=== PATIENT | female | born 1950 | race American Indian/Alaskan Native ===

== ENCOUNTER 2017-05-19 07:38 | Day surgery (SDC) | payer MEDICARE, OTHER ==
[2017-05-19] MEDS ORDERED: ECOTRIN PO NR (08:03)
[2017-05-19 08:19] LABS: Basophils # (Auto) 0.1 K/mm3 (0.0-0.1); Basophils % (Auto) 0.6 % (0.0-1.8); Eosinophils # (Auto) 0.3 K/mm3 (0.0-0.4); Eosinophils % (Auto) 2.2 % (0.0-4.3); Hematocrit 36.8 % (30.3-42.9); Hemoglobin 12.1 gm/dl (10.1-14.3); Lymphocytes # (Auto) 3.1 K/mm3 (1.2-5.4); Lymphocytes % (Auto) 27.2 % (13.4-35.0); Mean Corpuscular HGB Conc 33 % (30-34); Mean Corpuscular Hemoglobin 31 pg (28-32); Mean Corpuscular Volume 94 fl (79-97); Monocytes # (Auto) 1.4 K/mm3 (0.0-0.8); Platelet Count 206 K/mm3 (140-440); Red Blood Count 3.94 M/mm3 (3.65-5.03); Red Cell Distribution Width 13.5 % (13.2-15.2)
[2017-05-19 08:32] LABS: Calcium 8.9 mg/dL (8.4-10.2)
[2017-05-19] MEDS ORDERED: HEPARIN/NS 5000 UNIT/500ML(CATH LAB) 1,000 ML IR ONE (08:44)
[2017-05-19] MEDS ORDERED: HEPARIN 10,000 UNITS/10 ML ONE (08:44)
[2017-05-19] MEDS ORDERED: NACL 0.9% 500 ML 500 ML IV SCH (09:00)
[2017-05-19] MEDS ORDERED: D50W (25GM) Syringe IV ONE (09:04)
[2017-05-19 09:05] LABS: INR 0.89 (0.87-1.13)
[2017-05-19] MEDS: SUBLIMAZE ONE ×2 (09:36→09:44)
[2017-05-19] MEDS: VERSED ONE ×2 (09:36→09:44)
[2017-05-19] MEDS: XYLOCAINE 2% INFILTRATI ONE ×2 (09:37→09:45)
[2017-05-19] MEDS ORDERED: XYLOCAINE 2% INFILTRATI ONE (09:44)
[2017-05-19] MEDS ORDERED: NACL 0.9% 0 ML ONE (09:54)
[2017-05-19] MEDS ORDERED: ANGIOMAX IV ONE (09:54)
[2017-05-19] MEDS ORDERED: BENADRYL ONE (10:03)
[2017-05-19] MEDS ORDERED: NITROSTAT SL ONE (10:03)
[2017-05-19] MEDS: APRESOLINE ONE ×2 (10:08→10:16)
[2017-05-19] MEDS ORDERED: PEPCID IV ONE ×2 (10:10→10:16)
--- NOTE | 2017-05-19 10:44 | Cardiac Catherization Report ---
REFERRING PHYSICIAN: Nestor Armando MD INDICATION FOR PROCEDURE: The patient is a pleasant 67-year-old -[place] female with a history of coronary artery disease, status post coronary bypass surgery and bioprosthetic mitral valve placement, presents with chest pain, typical and atypical features. She also has an abnormal nuclear stress test with anterior and inferior ischemia. Referred for left heart catheterization. Risks, benefits, alternatives explained at length prior to informed consent. PROCEDURE IN DETAIL: The patient was brought to drop crew laborer in postoperative state, prepped and draped in a sterile fashion, 8 mL of 2% lidocaine used to anesthetize the right groin. Standard 5-Czech sheath used to cannulate the right common femoral artery via modified Seldinger technique. All exchanges performed to exchange a J-tip guidewire. JL3.5 catheter used to engage the left main. No dampening or ventricularization. Cineangiography performed in all projections. JR4 catheter was used to cross the aortic valve under fluoroscopic guidance. Left ventriculography performed in 30 HOPPER and 30 [place] projections via hand injections, catheter flushed. Manual pullback performed with continuous pressure monitoring. Catheter used to engage the right coronary. No dampening or ventricularization. Cineangiography performed in all projections. Next, catheter used to engage SVG to lateral wall, unable to engage any other SVGs off the aorta. We used the catheter to engage the left subclavian carefully advanced over a wire. WILCOX angiography performed. Next, catheter removed from the left subclavian over a wire carefully. Next, root aortography was performed in the SETS[place] projection with power injector. Next, catheter removed from the body of wire, sheath removed. Manual pressure used to achieve hemostasis. DATA: Aortic pressure is 130/60, LV pressure is 130, LVEP of 20 mmHg. Left ventriculography revealed normal systolic performance with estimated ejection fraction of 55-60%. No evidence of aortic stenosis. CORONARY ANATOMY: This is a right dominant system, right coronary is occluded proximally chronic total occlusion, extensive left to right collaterals identified. Left main is a moderate sized vessel, 50% distal left main stenosis identified. Left circumflex is a moderate size vessel, diffuse small vessel disease throughout with 80-90% mid segment stenosis. LAD is a moderate sized vessel, courses anterior intergroove rise occluded in the mid segment. WILCOX to LAD is widely patent. 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 Root aortography does not reveal any patent aorta or coronary conduits. No evidence of dissection or penetrating aortic ulcer or aortic insufficiency. I directly supervised the administration of moderate sedation with fentanyl and Versed. Sedation time started at 9:41, ended at 10:15. The patient's blood pressure spiked towards the end of the procedure, the patient was given 20 of IV hydralazine. This improved. No significant chest pain. The patient is asymptomatic at the end of the procedure. CONCLUSIONS: 1. Severe [place] coronary artery disease with 100% chronic total occlusion of the mid LAD, 100% chronic total occlusion of the proximal right coronary, diffuse small vessel disease 80-90% of the mid left circumflex, not amenable to PCI, extensive left to right collaterals. 2. Patent WILCOX to LAD. 3. 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 Normal left ventricular systolic performance, estimated ejection fraction of 55-60%. 4. No evidence of aortic stenosis. 5. Root aortography without evidence of dissection or penetrating aortic ulcer. At this point, the patient is clinically stable, chest pain free. Recommend intensifying medical therapy. chronic total occlusion at a later time. Results of procedure explained to the patient and family. All questions and concerns were addressed. She will be discharged in stable condition once right groin is stable. JOB# [id number] CARMENCITA/BLADE
[2017-05-19] MEDS ORDERED: PERCOCET 5/325 ONE (11:24)
[2017-05-19] MEDS ORDERED: PERCOCET 5/325 PO ONE (11:27)
[2017-05-19 16:05] VITALS: BP 114/50
--- NOTE | 2017-05-20 09:52 | Short Stay Summary ---
Short Stay Documentation Date of service: 05/19/17 - History H&P: obtained from office - Allergies and Medications Current Medications: Allergies No Known Allergies Allergy (Unverified 05/19/17 07:38) Home Medications Medication Instructions Recorded Confirmed Last Taken Type ALBUTEROL NEB's [Proventil] 2.5 mg IH TID PRN 05/19/17 05/19/17 1 Week Ago History ~05/12/17 Aspirin [Aspirin EC] 81 mg PO DAILY 05/19/17 05/19/17 05/18/17 History Carvedilol [Coreg] 12.5 mg PO BID 05/19/17 05/19/17 05/18/17 History Duloxetine HCl [DULoxetine] 60 mg PO DAILY 05/19/17 05/19/17 05/18/17 History Fluticasone Propionate [Flovent 2 puff INHALATION BID 05/19/17 05/19/17 History 110 MCG/PUFF HFA] Fluticasone [Flonase] 1 inh INNOSTRIL DAILY 05/19/17 05/19/17 1 Week Ago History ~05/12/17 Furosemide [Lasix TAB] 40 mg PO DAILY 05/19/17 05/19/17 05/18/17 History ISOSORBIDE MONOnitrate [Imdur ER] 60 mg PO QDAY 05/19/17 05/19/17 05/18/17 History Insulin Glargine,Hum.rec.anlog 10 unit PO DAILY 05/19/17 05/19/17 05/18/17 History [Lantus Solostar] Loratadine 10 mg PO DAILY 05/19/17 05/19/17 05/17/17 History Meloxicam 15 mg PO DAILY 05/19/17 05/19/17 05/18/17 History Metformin HCl 500 mg PO BID 05/19/17 05/19/17 1 Week Ago History ~05/12/17 Montelukast [Singulair] 10 mg PO QPM 05/19/17 05/19/17 05/18/17 History Nitroglycerin 0.4 mg SL Q5MIN PRN 05/19/17 05/19/17 05/14/17 History Omeprazole 20 mg PO DAILY 05/19/17 05/19/17 05/18/17 History Ramipril 5 mg PO DAILY 05/19/17 05/19/17 05/18/17 History Ranolazine [Ranexa] 500 mg PO BID #60 tab.er.12h 05/19/17 Unknown Rx Saxagliptin HCl [Onglyza] 5 mg PO DAILY 05/19/17 05/19/17 05/18/17 History Tiotropium [place] [Spiriva] 18 mcg IH DAILY 05/19/17 05/19/17 05/16/17 History Zolpidem [Ambien] 10 mg PO QHS 05/19/17 05/19/17 4 Months Ago History ~01/18/17 busPIRone [Buspar] 5 mg PO DAILY 05/19/17 05/19/17 05/18/17 History oxyCODONE /ACETAMINOPHEN [Percocet 1 tab PO Q6HR PRN 05/19/17 05/19/17 05/19/17 History 5/325 mg] - Brief post op/procedure progress note Date of procedure: 05/19/17 Pre-op diagnosis: CAD; abnormal stress test Post-op diagnosis: same Procedure: C - see cath report Anesthesia: local Estimated blood loss: none Condition: stable - Disposition Condition at discharge: Stable Disposition: [id number] TO HOME OR SELFCARE - Discharge Diagnoses (1) CAD (coronary artery disease) Status: Chronic (2) Hx of CABG Status: Chronic (3) History of mitral valve replacement with bioprosthetic valve Status: Chronic Short Stay Discharge Plan Activity: advance as tolerated Diet: low fat, low cholesterol, low salt Wound: open to air, keep clean and dry, per your surgeon's advice Follow up with: CLEO FUNK NP-C [Primary Care Provider] - 7 Days Prescriptions: Ranolazine [Ranexa] 500 mg PO BID #60 tab.er.12h
== END 2017-05-19 15:15 | disposition home or self-care (01) ==
LOC: CATHLABREC 07:38
PROVIDERS: ATTEND Internal Medicine
DX: I25.10 Atherosclerotic heart disease of native coronary artery without angina pectoris (principal); I11.0 Hypertensive heart disease with heart failure; I50.9 Heart failure, unspecified; J44.9 Chronic obstructive pulmonary disease, unspecified; E11.9 Type 2 diabetes mellitus without complications; E78.5 Hyperlipidemia, unspecified; E66.01 Morbid (severe) obesity due to excess calories; Z95.2 Presence of prosthetic heart valve; Z79.01 Long term (current) use of anticoagulants
CPT/HCPCS: 36415; 80048; 82962; 85025; 85610; 85730; 93005; 93010; 93459; 93567; 99156; 99157; J0360; J1200; J1644; J2250; J2930; J3010; J7040; J0583; Q9967

== ENCOUNTER 2018-09-22 17:34 | Inpatient (IN) | payer MEDICARE ==
[2018-09-22] MEDS ORDERED: CARDIZEM IV ONE (18:00)
--- NOTE | 2018-09-22 18:05 | Emergency Department Report ---
ED Palpitations HPI - General Chief Complaint: Arrhythmia/Palpitations Stated Complaint: CHEST PAIN Time Seen by Provider: 09/22/18 17:52 Source: patient Mode of arrival: Wheelchair Limitations: No Limitations - History of Present Illness Initial Comments: 68 yo F with hx of CABG, coronary stents, mitral valve replacement, CHF presents to ED in Afib with RVR. Pt sent from her psychiatric np's office. Pt states she had a regularly scheduled appointment today. Reports palpitations today, which is new. Also reports intermittent chest pain and SOB over the last 2 weeks. Pt does not believe she has been previously diagnosed with Afib or an irregular heartbeat. Denies taking any blood thinners. Cards: Prabha COREA Complaint: atrial fibrillation -: days(s) (1) Context: occured during rest Associated Symptoms: chest pain, shortness of breath. denies: nausea/vomiting - Related Data Home Medications Medication Instructions Recorded Confirmed Last Taken ALBUTEROL NEB's [Proventil] 2.5 mg IH TID PRN 05/19/17 09/22/18 1 Week Ago ~05/12/17 Aspirin [Aspirin EC] 81 mg PO DAILY 05/19/17 09/22/18 05/18/17 Carvedilol [Coreg] 12.5 mg PO BID 05/19/17 09/22/18 05/18/17 Duloxetine HCl [DULoxetine] 60 mg PO DAILY 05/19/17 09/22/18 05/18/17 Fluticasone Propionate [Flovent 2 puff INHALATION BID 05/19/17 09/22/18 05/17/17 110 MCG/PUFF HFA] Fluticasone [Flonase] 1 inh INNOSTRIL DAILY 05/19/17 09/22/18 1 Week Ago ~05/12/17 Furosemide [Lasix TAB] 40 mg PO DAILY 05/19/17 09/22/18 05/18/17 ISOSORBIDE MONOnitrate [Imdur ER] 60 mg PO QDAY 05/19/17 09/22/18 05/18/17 Insulin Glargine,Hum.rec.anlog 10 unit PO DAILY 05/19/17 09/22/18 05/18/17 [Lantus Solostar] Loratadine 10 mg PO DAILY 05/19/17 09/22/18 05/17/17 Meloxicam 15 mg PO DAILY 05/19/17 09/22/18 05/18/17 Metformin HCl 500 mg PO BID 05/19/17 09/22/18 1 Week Ago ~05/12/17 Montelukast [Singulair] 10 mg PO QPM 05/19/17 09/22/18 05/18/17 Nitroglycerin 0.4 mg SL Q5MIN PRN 05/19/17 09/22/18 05/14/17 Omeprazole 20 mg PO DAILY 05/19/17 09/22/18 05/18/17 Ramipril 5 mg PO DAILY 05/19/17 09/22/18 05/18/17 Saxagliptin HCl [Onglyza] 5 mg PO DAILY 05/19/17 09/22/18 05/18/17 Tiotropium [place] [Spiriva] 18 mcg IH DAILY 05/19/17 09/22/18 05/16/17 Zolpidem [Ambien] 10 mg PO QHS 05/19/17 09/22/18 4 Months Ago ~01/18/17 busPIRone [Buspar] 5 mg PO DAILY 05/19/17 09/22/18 05/18/17 oxyCODONE /ACETAMINOPHEN [Percocet 1 tab PO Q6HR PRN 05/19/17 09/22/18 05/19/17 5/325 mg] Previous Rx's Medication Instructions Recorded Last Taken Type Ranolazine [Ranexa] 500 mg PO BID #60 tab.er.12h 05/19/17 Unknown Rx Allergies Allergy/AdvReac Type Severity Reaction Status Date / Time No Known Allergies Allergy Unverified 05/19/17 07:38 ED Review of Systems ROS: Stated complaint: CHEST PAIN Other details as noted in HPI Comment: All other systems reviewed and negative Constitutional: denies: chills, fever Respiratory: shortness of breath Cardiovascular: chest pain, palpitations Gastrointestinal: denies: nausea, vomiting ED Past Medical Hx - Past Medical History Previous Medical History?: Yes Hx Hypertension: Yes Hx Heart Attack/AMI: Yes Hx Congestive Heart Failure: Yes Hx Diabetes: Yes (IDDM) Hx GERD: Yes Hx Arthritis: Yes (knee) Hx COPD: Yes - Surgical History Past Surgical History?: Yes Hx Open Heart Surgery: Yes - Social History Smoking Status: Current Every Day Smoker Substance Use Type: None - Medications Home Medications: Home Medications Medication Instructions Recorded Confirmed Last Taken Type ALBUTEROL NEB's [Proventil] 2.5 mg IH TID PRN 05/19/17 09/22/18 1 Week Ago History ~05/12/17 Aspirin [Aspirin EC] 81 mg PO DAILY 05/19/17 09/22/18 05/18/17 History Carvedilol [Coreg] 12.5 mg PO BID 05/19/17 09/22/18 05/18/17 History Duloxetine HCl [DULoxetine] 60 mg PO DAILY 05/19/17 09/22/18 05/18/17 History Fluticasone Propionate [Flovent 2 puff INHALATION BID 05/19/17 09/22/18 05/17/17 History 110 MCG/PUFF HFA] Fluticasone [Flonase] 1 inh INNOSTRIL DAILY 05/19/17 09/22/18 1 Week Ago History ~05/12/17 Furosemide [Lasix TAB] 40 mg PO DAILY 05/19/17 09/22/18 05/18/17 History ISOSORBIDE MONOnitrate [Imdur ER] 60 mg PO QDAY 05/19/17 09/22/18 05/18/17 History Insulin Glargine,Hum.rec.anlog 10 unit PO DAILY 05/19/17 09/22/18 05/18/17 History [Lantus Solostar] Loratadine 10 mg PO DAILY 05/19/17 09/22/18 05/17/17 History Meloxicam 15 mg PO DAILY 05/19/17 09/22/18 05/18/17 History Metformin HCl 500 mg PO BID 05/19/17 09/22/18 1 Week Ago History ~05/12/17 Montelukast [Singulair] 10 mg PO QPM 05/19/17 09/22/18 05/18/17 History Nitroglycerin 0.4 mg SL Q5MIN PRN 05/19/17 09/22/18 05/14/17 History Omeprazole 20 mg PO DAILY 05/19/17 09/22/18 05/18/17 History Ramipril 5 mg PO DAILY 05/19/17 09/22/18 05/18/17 History Ranolazine [Ranexa] 500 mg PO BID #60 tab.er.12h 05/19/17 09/22/18 Unknown Rx Saxagliptin HCl [Onglyza] 5 mg PO DAILY 05/19/17 09/22/18 05/18/17 History Tiotropium [place] [Spiriva] 18 mcg IH DAILY 05/19/17 09/22/18 05/16/17 History Zolpidem [Ambien] 10 mg PO QHS 05/19/17 09/22/18 4 Months Ago History ~01/18/17 busPIRone [Buspar] 5 mg PO DAILY 05/19/17 09/22/18 05/18/17 History oxyCODONE /ACETAMINOPHEN [Percocet 1 tab PO Q6HR PRN 05/19/17 09/22/18 05/19/17 History 5/325 mg] ED Physical Exam - General Limitations: No Limitations General appearance: alert - Head Head exam: Present: atraumatic, normocephalic - Eye Eye exam: Present: normal appearance, PERRL, EOMI - ENT ENT exam: Present: mucous membranes moist - Neck Neck exam: Present: normal inspection - Respiratory Respiratory exam: Present: normal lung sounds bilaterally. Absent: respiratory distress - Cardiovascular Cardiovascular Exam: Present: tachycardia, irregular rhythm - GI/Abdominal GI/Abdominal exam: Present: soft. Absent: distended, tenderness - Extremities Exam Extremities exam: Present: normal inspection. Absent: pedal edema - Neurological Exam Neurological exam: Present: alert, oriented X3 - Psychiatric Psychiatric exam: Present: normal affect, normal mood - Skin Skin exam: Present: warm, dry, intact, normal color ED Course Vital Signs 09/22/18 09/22/18 09/22/18 17:46 18:04 18:15 Pulse Rate 123 H 106 H Respiratory 20 15 13 Rate Blood Pressure 155/81 Blood Pressure 166/93 [Right] O2 Sat by Pulse 96 95 Oximetry 09/22/18 09/22/18 09/22/18 18:30 18:40 18:45 Pulse Rate 102 H 102 H 89 Respiratory 12 15 Rate Blood Pressure 162/84 162/82 128/65 Blood Pressure [Right] O2 Sat by Pulse 96 100 Oximetry 09/22/18 09/22/18 09/22/18 19:01 19:15 19:31 Pulse Rate 89 89 90 Respiratory 12 19 12 Rate Blood Pressure 170/146 170/146 179/68 Blood Pressure [Right] O2 Sat by Pulse 100 99 100 Oximetry 09/22/18 09/22/18 09/22/18 19:45 20:01 20:15 Pulse Rate 88 88 89 Respiratory 12 15 14 Rate Blood Pressure 179/68 169/71 155/66 Blood Pressure [Right] O2 Sat by Pulse 100 100 100 Oximetry 09/22/18 09/22/18 09/22/18 20:31 20:45 21:00 Pulse Rate 95 H 94 H 88 Respiratory 15 20 11 L Rate Blood Pressure 154/68 150/60 152/80 Blood Pressure [Right] O2 Sat by Pulse 100 100 100 Oximetry 09/22/18 09/22/18 09/22/18 21:15 21:31 21:45 Pulse Rate 89 85 108 H Respiratory 18 16 17 Rate Blood Pressure 150/60 165/80 158/83 Blood Pressure [Right] O2 Sat by Pulse 100 100 100 Oximetry 09/22/18 09/22/18 09/22/18 22:01 22:15 22:31 Pulse Rate 96 H 100 H 101 H Respiratory 15 15 14 Rate Blood Pressure 169/77 155/80 130/67 Blood Pressure [Right] O2 Sat by Pulse 100 100 100 Oximetry 09/22/18 09/22/18 23:01 23:31 Pulse Rate 107 H 102 H Respiratory 16 16 Rate Blood Pressure 146/57 133/74 Blood Pressure [Right] O2 Sat by Pulse 100 100 Oximetry - Consultations Consultation #1: 09/22/18 21:40 Spoke w/ Dr Barajas Julio Cesartanner pt started on Amiodarone 400 mg BID. ED Medical Decision Making - Lab Data Result diagrams: 09/22/18 18:18 09/22/18 18:18 - EKG Data -: EKG Interpreted by Ga EKG shows normal: QRS complexes, ST-T waves Rate: tachycardia - EKG Data Interpretation: other (atrial fibrillation) - Radiology Data Radiology results: report reviewed, image reviewed - Medical Decision Making 68 yo F presents to ED in Afib w/ RVR, new onset Afib. Trop negative. CXR shows cardiomegaly, possible mild pulm edema. O2 sats normal. Pt in no resp distress. Rate controlled with one dose of Cardizem 20 mg. Pt given PO Amio darone per her psychiatric np, Dr Armando. Will admit to hospitalist, Dr Otero, for further evaluation. - Differential Diagnosis ACS, new onset Afib, pulm edema Critical Care Time: Yes Critical care time in (mins) excluding proc time.: 35 Critical care attestation.: If time is entered above; I have spent that time in minutes in the direct care of this critically ill patient, excluding procedure time. Critical Care Time: 35 minutes ED Disposition Clinical Impression: New onset atrial fibrillation, Atrial fibrillation with RVR Disposition: OP ADMIT IP TO THIS HOSP Is pt being admited?: Yes Condition: Stable Referrals: TESSA WEEKS MD [Primary Care Provider] - 3-5 Days Time of Disposition: 19:06
[2018-09-22 18:35] LABS: Basophils # (Auto) 0.1 K/mm3 (0.0-0.1); Basophils % (Auto) 0.9 % (0.0-1.8); Eosinophils # (Auto) 0.2 K/mm3 (0.0-0.4); Eosinophils % (Auto) 1.7 % (0.0-4.3); Hematocrit 37.6 % (30.3-42.9); Hemoglobin 12.5 gm/dl (10.1-14.3); Lymphocytes # (Auto) 1.8 K/mm3 (1.2-5.4); Lymphocytes % (Auto) 18.9 % (13.4-35.0); Mean Corpuscular HGB Conc 33 % (30-34); Mean Corpuscular Volume 95 fl (79-97); Monocytes # (Auto) 1.2 K/mm3 (0.0-0.8); Platelet Count 188 K/mm3 (140-440); Red Blood Count 3.95 M/mm3 (3.65-5.03)
[2018-09-22 18:44] LABS: INR 1.18 (0.87-1.13)
[2018-09-22 18:45] LABS: Partial Thromboplastin Time 32.7 Sec. (24.2-36.6)
[2018-09-22 18:51] LABS: BUN/Creatinine Ratio 12; Blood Urea Nitrogen 12 mg/dL (7-17); Calcium 8.6 mg/dL (8.4-10.2); Hemolysis Index 2
[2018-09-22] MEDS ORDERED: MORPHINE ONE (18:53)
[2018-09-22] MEDS ORDERED: ZOFRAN ONE (18:54)
[2018-09-22] MEDS ORDERED: ZOFRAN IV ONE (18:58)
[2018-09-22] MEDS ORDERED: MORPHINE IV ONE (18:58)
[2018-09-22] MEDS ORDERED: ASPIRIN PO ONE (19:05)
--- NOTE | 2018-09-22 20:45 | XRay Report ---
CHEST 1 VIEW INDICATION / CLINICAL INFORMATION: chest pain. COMPARISON: None available. FINDINGS: SUPPORT DEVICES: None. HEART / MEDIASTINUM: Post surgical changes of CABG and aortic valve replacement are present. The hear t is mildly enlarged. LUNGS / PLEURA: No definite pleural fluid. No pneumothorax. Pulmonary vascular and interstitial iman ngs are mildly prominent. The right hemidiaphragm is elevated. ADDITIONAL FINDINGS: Advanced osteoarthrosis of the shoulders. No acute bony abnormality. IMPRESSION: 1. Mild cardiomegaly. 2. No pulmonary consolidation. Interstitial and vascular prominence is suggestive of mild pulmonary e he. Signer Name: Cosme Castillo MD Signed: 09/22/2018 8:41 PM Workstation Name: [id number]
[2018-09-22] MEDS ORDERED: CORDARONE PO SCH (22:00)
[2018-09-23] MEDS ORDERED: HEPARIN 10,000 UNITS/10 ML IV NR (01:15)
[2018-09-23] MEDS ORDERED: NITROSTAT SL PRN (01:19)
[2018-09-23] MEDS ORDERED: TYLENOL PO PRN (01:20)
[2018-09-23] MEDS ORDERED: ZOFRAN IV PRN (01:21)
[2018-09-23 01:48] LABS: Hematocrit 37.4 % (30.3-42.9); Hemoglobin 12.4 gm/dl (10.1-14.3)
[2018-09-23] MEDS ORDERED: HEPARIN/ 0.45% NACL-25,000 UNIT/500 ML 25,000 UNIT/500 ML BAG IV SCH (02:00)
[2018-09-23 02:14] LABS: INR 1.1 (0.87-1.13)
[2018-09-23 02:15] LABS: Partial Thromboplastin Time 32.9 Sec. (24.2-36.6)
[2018-09-23] MEDS: MORPHINE IV PRN ×3 (02:15→21:36)
[2018-09-23] MEDS ORDERED: NITRO-BID 2% TP SCH (06:00)
[2018-09-23 07:50] LABS: Creatine Kinase MB 1.9 ng/mL (0.0-4.0)
--- NOTE | 2018-09-23 08:32 | History and Physical Report ---
CHIEF COMPLAINT: Palpitation. Other complaint includes chest pain. HISTORY OF PRESENT ILLNESS: The patient is a 68-year-old female who said she has been having intermittent chest pain with shortness of breath going on for 2 weeks and then developed palpitations yesterday 09/22/2018 and the patient had a scheduled appointment with the appraiser timber Dr. Armando and went to the appraiser timber's office from where she was sent to come to the Emergency Room because of irregular heartbeat. There is no history of nausea or vomiting. No history of diaphoresis, fever, cough and the patient presented for evaluation. PAST MEDICAL HISTORY: Pertinent for hypertension, coronary artery disease, status post myocardial infarction, congestive heart failure, diabetes mellitus, gastroesophageal reflux disease, arthritis, COPD. PAST SURGICAL HISTORY: Pertinent for open heart surgery. FAMILY HISTORY: Reviewed and noncontributory. SOCIAL HISTORY: The patient smokes cigarettes daily, does not drink alcohol and does not use illicit drugs. MEDICATIONS: The patient is on albuterol inhaler 2.5 mg t.i.d. as needed for shortness of breath, enteric-coated aspirin 81 mg daily, Coreg 12.5 mg by mouth twice daily, duloxetine 60 mg by mouth daily and Flovent 2 puffs by inhalation b.i.d., fluticasone 1 inch in the nostril daily, furosemide 40 mg by mouth daily, isosorbide mononitrate 60 mg by mouth daily, Lantus insulin 10 units by mouth daily, loratadine 10 mg by mouth daily, meloxicam 15 mg by mouth daily, metformin 500 mg by mouth twice daily, Singulair 10 mg by mouth every night and Nitrostat 0.4 mg sublingual every 5 minutes as needed for chest pain, omeprazole 20 mg by mouth daily and ramipril 5 mg by mouth daily, Ranexa 500 mg by mouth twice daily, saxagliptin or Onglyza 5 mg by mouth daily. The patient is also on Spiriva 18 mcg inhalation daily and zolpidem 10 mg by mouth at bedtime as well as buspirone 5 mg by mouth daily. The patient is also on Percocet 5/325 mg 1 by mouth every 6 hours as needed for pain. ALLERGIES: There are no known drug allergies. REVIEW OF SYSTEMS: CONSTITUTIONAL: There is no fever, no chills, no diaphoresis. HEENT: There is no headache or sore throat. CARDIOVASCULAR SYSTEM: There is chest pain, but no orthopnea. There is palpitation. RESPIRATORY SYSTEM: There is shortness of breath and no cough. GASTROINTESTINAL SYSTEM: There is no nausea, no vomiting, no abdominal pain, diarrhea or constipation. NEUROLOGICAL SYSTEM: There is no numbness, no dizziness, no altered mental status. MUSCULOSKELETAL SYSTEM: There is no joint pain or swelling. DERMATOLOGICAL SYSTEM: There is no skin rash or itching. GENITOURINARY SYSTEM: There is no dysuria, hematuria, or flank pain. Rest of system review is normal. PHYSICAL EXAMINATION: GENERAL: At the time of exam, the patient was found to be alert, oriented x 3 and in mild distress due to chest pain. VITAL SIGNS: At the initial time of presentation show pulse of 123, respirations of 20, blood pressure of 166/93, O2 sat of 96% on room air. The blood pressure later came down to 113/60 with nitroglycerin and other treatments. HEENT: Showed pupils to be equal, round, reactive to light and accommodating. Extraocular muscles are intact. NECK: Supple with no JVD or carotid bruit. CARDIOVASCULAR SYSTEM: Showed first and second heart sounds with irregularly irregular rhythm and no murmurs. RESPIRATORY SYSTEM: Showed good air entry on both sides of the lungs with no abnormal breath sounds. GASTROINTESTINAL SYSTEM: Show abdomen to be full, soft, nontender with no organomegaly or rigidity. NEUROLOGICAL: Shows no focal deficit. MUSCULOSKELETAL SYSTEM: Show no joint swelling or tenderness. DERMATOLOGICAL SYSTEM: Show no skin rash. GENITOURINARY SYSTEM: Showing no costovertebral angle tenderness. PERTINENT LABORATORY DATA AND IMAGING STUDIES: The patient had chest x-ray done that shows mild cardiomegaly and interstitial and vascular prominence suggestive of mild pulmonary edema. There is no finding of any pulmonary consolidation. LABORATORY AND IMAGING STUDIES: The patient had CBC done with normal white count, normal hemoglobin and normal hematocrit and CBC differential showed high monocyte count of 12%. The patient's coagulation studies were unremarkable. Chemistry was normal except for elevated brain natriuretic peptide [place] 2558. DIAGNOSES: 1. New onset atrial fibrillation with rapid ventricular rate. 2. Chest pain. PLAN OF CARE: 1. The patient will be admitted to telemetry. 2. The patient will have serial cardiac enzymes done q. 6 hours and involve troponin and total CPK with CK-MB for 2 levels. 3. The patient will continue Cardiology consult with Dr. Armando as was requested by the Emergency Room physician. 4. The patient will be on nitro paste half inch to anterior chest wall q.i.d. and will be on Nitrostat 0.24 mg every 5 minutes as needed for breakthrough chest pain. 5. The patient will be on I.V heparin protocol for atrial fibrillation and will have IV heparin bolus and low-dose heparin drip. 6. The patient will be on IV morphine 2 mg every 3 hours as needed for chest pain and will be on IV Zofran 4 mg every 8 hours for nausea and vomiting. 7. The patient will continue amiodarone tablet 400 mg by mouth twice daily as requested by the Emergency Room physician. 8. The patient will be on aspirin 325 mg by mouth daily and Tylenol 650 mg by mouth every 4 hours as needed for fever and headache. 9. The patient will be on oxygen by nasal cannula 2 liters per minute. JOB# [id number] [facility]/BLADE [email or web address]
--- NOTE | 2018-09-23 09:26 | Consultation ---
History of Present Illness Consult date: 09/23/18 Requesting physician: HUMERA NATHAN Consult reason: atrial fibrillation, chest pain History of present illness: 68-year-old female with known history of coronary arterial disease with four- vessel bypass in 1997 last year his cardiac cath revealed occluded bypass grafts with a patent WILCOX to LAD and left main distal 50% circumflex small caliber 80- 90% distally and RCA 100% with extensive [id number] collaterals but normal LV function. 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 Patient has valvular heart disease with a bioprosthetic mitral valve placed in 2009 that was functioning on echo done last year in office. Patient has diabetes smoker hypertension hyperlipidemia. Who saw cardiology as an office with palpitations and some chest pain and patient was found to have A. fib patient was admitted to the hospital. Patient has chest pain that's nonradiating left-sided not reproducible. No nausea no vomiting. Patient has been coughing some mild sputum production. Has mild shortness of breath. Denies any fever or chills. Past History Past Medical History: CAD, diabetes, hypertension, hyperlipidemia Past Surgical History: CABG, total knee replacement, Other (bioprosthetic mitral valve replacement in 2009) Social history: denies: smoking, alcohol abuse, prescription drug abuse Family history: denies: no significant family history Medications and Allergies Allergies Allergy/AdvReac Type Severity Reaction Status Date / Time No Known Allergies Allergy Unverified 05/19/17 07:38 Home Medications Medication Instructions Recorded Confirmed Last Taken Type ALBUTEROL NEB's [Proventil] 2.5 mg IH TID PRN 05/19/17 09/22/18 1 Week Ago History ~05/12/17 Aspirin [Aspirin EC] 81 mg PO DAILY 05/19/17 09/22/18 05/18/17 History Carvedilol [Coreg] 12.5 mg PO BID 05/19/17 09/22/18 05/18/17 History Duloxetine HCl [DULoxetine] 60 mg PO DAILY 05/19/17 09/22/18 05/18/17 History Fluticasone Propionate [Flovent 2 puff INHALATION BID 05/19/17 09/22/18 05/17/17 History 110 MCG/PUFF HFA] Fluticasone [Flonase] 1 inh INNOSTRIL DAILY 05/19/17 09/22/18 1 Week Ago History ~05/12/17 Furosemide [Lasix TAB] 40 mg PO DAILY 05/19/17 09/22/18 05/18/17 History ISOSORBIDE MONOnitrate [Imdur ER] 60 mg PO QDAY 05/19/17 09/22/18 05/18/17 History Insulin Glargine,Hum.rec.anlog 10 unit PO DAILY 05/19/17 09/22/18 05/18/17 History [Lantus Solostar] Loratadine 10 mg PO DAILY 05/19/17 09/22/18 05/17/17 History Meloxicam 15 mg PO DAILY 05/19/17 09/22/18 05/18/17 History Metformin HCl 500 mg PO BID 05/19/17 09/22/18 1 Week Ago History ~05/12/17 Montelukast [Singulair] 10 mg PO QPM 05/19/17 09/22/18 05/18/17 History Nitroglycerin 0.4 mg SL Q5MIN PRN 05/19/17 09/22/18 05/14/17 History Omeprazole 20 mg PO DAILY 05/19/17 09/22/18 05/18/17 History Ramipril 5 mg PO DAILY 05/19/17 09/22/18 05/18/17 History Ranolazine [Ranexa] 500 mg PO BID #60 tab.er.12h 05/19/17 09/22/18 Unknown Rx Saxagliptin HCl [Onglyza] 5 mg PO DAILY 05/19/17 09/22/18 05/18/17 History Tiotropium [place] [Spiriva] 18 mcg IH DAILY 05/19/17 09/22/18 05/16/17 History Zolpidem [Ambien] 10 mg PO QHS 05/19/17 09/22/18 4 Months Ago History ~01/18/17 busPIRone [Buspar] 5 mg PO DAILY 05/19/17 09/22/18 05/18/17 History oxyCODONE /ACETAMINOPHEN [Percocet 1 tab PO Q6HR PRN 05/19/17 09/22/18 05/19/17 History 5/325 mg] Active Meds: Active Medications Acetaminophen (Tylenol) 650 mg PO Q4H PRN PRN Reason: Headache Amiodarone HCl (Cordarone) 400 mg PO BID [facility] Last Admin: 09/22/18 23:00 Dose: 400 mg Documented by: Aspirin (Aspirin) 325 mg PO QDAY [facility] Buspirone HCl (Buspar) 5 mg PO DAILY [facility] Heparin Sodium/Sodium Chloride (Heparin/ 0.45% Nacl-25,000 Unit/500 Ml) 25,000 unit in 500 mls @ 27 mls/hr IV TITR [facility]; Protocol Last Admin: 09/23/18 03:27 Dose: 1,350 units/hr, 27 mls/hr Documented by: Isosorbide Mononitrate (Imdur) 60 mg PO QDAY [facility] Morphine Sulfate (Morphine) 2 mg IV Q3H PRN PRN Reason: Pain, Moderate (4-6) Last Admin: 09/23/18 08:02 Dose: 2 mg Documented by: Nitroglycerin (Nitro-Bid 2%) 0.5 inch TP QIDNTG [facility]; Protocol Last Admin: 09/23/18 06:30 Dose: Not Given Documented by: Nitroglycerin (Nitrostat) 0.4 mg SL .Q5MIN PRN PRN Reason: Chest Pain Last Admin: 09/23/18 03:51 Dose: 0.4 mg Documented by: Ondansetron HCl (Zofran) 4 mg IV Q8H PRN PRN Reason: Nausea And Vomiting Ranolazine (Ranexa Er) 500 mg PO BID [facility] Review of Systems All systems: negative (as per the HPI) Physical Examination Vital Signs Pulse Resp BP Pulse Ox 123 H 20 166/93 96 09/22/18 17:46 09/22/18 17:46 09/22/18 17:46 09/22/18 17:46 General appearance: no acute distress HEENT: Positive: PERRL, EOMI Neck: Positive: neck supple Cardiac: Positive: Irregularly Regular, Audible Murmur Lungs: Positive: Rhonchi Neuro: Positive: Grossly Intact Abdomen: Positive: Soft Female genitourinary: deferred Musculoskeletal: Erythematous Joints Extremities: Present: normal Results 09/23/18 01:34 09/22/18 18:18 Cardiac Enzymes 09/23/18 Range/Units 06:57 CK-MB (CK-2) 1.9 (0.0-4.0) ng/mL Coagulation 09/22/18 09/23/18 Range/Units 18:18 01:34 PT 14.7 13.9 (12.2-14.9) Sec. INR 1.18 H 1.10 (0.87-1.13) APTT 32.7 32.9 (24.2-36.6) Sec. CBC 09/22/18 09/23/18 Range/Units 18:18 01:34 WBC 9.7 (4.5-11.0) K/mm3 RBC 3.95 (3.65-5.03) M/mm3 Hgb 12.5 12.4 (10.1-14.3) gm/dl Hct 37.6 37.4 (30.3-42.9) % Plt Count 188 193 (140-440) K/mm3 Lymph # 1.8 (1.2-5.4) K/mm3 [place] # 1.2 H (0.0-0.8) K/mm3 Eos # 0.2 (0.0-0.4) K/mm3 Baso # 0.1 (0.0-0.1) K/mm3 Comprehensive Metabolic Panel 09/22/18 Range/Units 18:18 Sodium 138 (137-145) mmol/L Potassium 4.4 (3.6-5.0) mmol/L Chloride 103.6 (98-107) mmol/L Carbon Dioxide 25 (22-30) mmol/L BUN 12 (7-17) mg/dL Creatinine 1.0 (0.7-1.2) mg/dL Glucose 116 H (65-100) mg/dL Calcium 8.6 (8.4-10.2) mg/dL - Imaging and Cardiology Echo: report reviewed (04/2017 normal LV function functioning bioprosthetic mitral valve) Cardiac cath: report reviewed (05/2017 revealed occluded bypass grafts with a p atent WILCOX to LAD and left main distal 50% circumflex small caliber 80-90% distally and RCA 100% with extensive [id number] collaterals but normal LV function) EKG interpretations - Telemetry EKG Rhythm: Atrial Fibrillation Assessment and Plan New onset atrial fibrillation Acute DHF Acute COPD exacerbation Chest pain Coronary arterial disease status post bypass Bioprosthetic mitral valve Hypertension Diabetes Hyperlipidemia Smoker Recommend changing to oral anticoagulation given patient's chads score of 3, elquis , restart patient's home anti-angina medication of Ranexa imdur and restart lisinopril and will start Lopressor for heart rate control and decrease amiodarone to 200 mg twice a day. Awaiting echocardiogram and treatment for wheezing and possible COPD exacerbation, in view of elevated BNP will restart Lasix.
[2018-09-23] MEDS: ELIQUIS PO SCH ×2 (09:42→21:39)
[2018-09-23] MEDS: RANEXA ER PO SCH ×2 (09:43→21:39)
[2018-09-23] MEDS: LASIX PO SCH (09:43)
[2018-09-23] MEDS: IMDUR PO SCH (09:43)
[2018-09-23] MEDS: LOPRESSOR PO SCH ×2 (09:43→21:39)
[2018-09-23] MEDS: ZESTRIL PO SCH (09:43)
[2018-09-23] MEDS: CORDARONE PO SCH ×2 (09:43→21:39)
[2018-09-23] MEDS ORDERED: ASPIRIN PO SCH (10:00)
[2018-09-23] MEDS ORDERED: PROVENTIL IH PRN (11:19)
[2018-09-23] MEDS ORDERED: D50W (25GM) Syringe IV PRN (11:29)
[2018-09-23] MEDS ORDERED: NON-FORMULARY (Saxagliptin Hcl [Onglyza] 5 MG) PO SCH (11:30)
[2018-09-23] MEDS ORDERED: NON-FORMULARY (Duloxetine Hcl [Duloxetine] 60 MG) PO SCH (11:30)
[2018-09-23] MEDS ORDERED: FLUTICASONE PROPIONATE INHALATION SCH (11:30)
[2018-09-23] MEDS ORDERED: INSULIN GLARGINE HUM REC ANLOG 10 UNIT PO SCH (11:30)
[2018-09-23] MEDS: SPIRIVA IH SCH (11:55)
[2018-09-23] MEDS ORDERED: LASIX PO SCH (12:00)
[2018-09-23] MEDS: HumaLOG SUB-Q SCH ×2 (12:15→17:20)
[2018-09-23] MEDS: TRADJENTA PO SCH (12:40)
[2018-09-23] MEDS: BUSPAR PO SCH (12:40)
[2018-09-23] MEDS: CYMBALTA PO SCH (12:40)
[2018-09-23] MEDS: SOLU-Medrol IV SCH ×2 (12:41→21:42)
[2018-09-23] MEDS: HALFPRIN EC PO SCH (12:43)
[2018-09-23] MEDS: DUONEB *Not for PRN Use IH SCH ×3 (13:38→19:39)
[2018-09-23] MEDS: FLONASE NS SCH (14:22)
[2018-09-23] MEDS: MOBIC PO SCH (14:22)
[2018-09-23] MEDS: PERCOCET 5/325 PO PRN (15:05)
[2018-09-23 16:06] LABS: Creatine Kinase MB 1.9 ng/mL (0.0-4.0)
[2018-09-23] MEDS: GLUCOPHAGE PO SCH ×2 (17:20→17:24)
[2018-09-23] MEDS: PULMICORT IH SCH (19:39)
[2018-09-23] MEDS: SINGULAIR PO SCH (21:39)
[2018-09-23] MEDS: HumuLIN R SUB-Q SCH (21:45)
[2018-09-23] MEDS: LANTUS SUB-Q SCH (21:50)
[2018-09-23] MEDS ORDERED: AMBIEN PO SCH (22:00)
[2018-09-24] MEDS: DUONEB *Not for PRN Use IH SCH ×4 (03:24→19:06)
[2018-09-24] MEDS: PULMICORT IH SCH ×2 (07:43→19:06)
[2018-09-24] MEDS: PERCOCET 5/325 PO PRN ×3 (07:52→20:46)
[2018-09-24] MEDS: SPIRIVA IH SCH ×2 (07:56→10:20)
[2018-09-24] MEDS: GLUCOPHAGE PO SCH ×2 (08:13→17:13)
[2018-09-24] MEDS: HumaLOG SUB-Q SCH ×3 (08:13→17:13)
[2018-09-24] MEDS ORDERED: NON-FORMULARY (Omeprazole [Omeprazole] 20 MG) PO SCH (10:00)
[2018-09-24] MEDS: HALFPRIN EC PO SCH (10:25)
[2018-09-24] MEDS: CYMBALTA PO SCH (10:25)
[2018-09-24] MEDS: IMDUR PO SCH (10:25)
[2018-09-24] MEDS: PROTONIX PO SCH (10:26)
[2018-09-24] MEDS: CORDARONE PO SCH (10:26)
[2018-09-24] MEDS: BUSPAR PO SCH (10:26)
[2018-09-24] MEDS: LOPRESSOR PO SCH ×3 (10:26→21:58)
[2018-09-24] MEDS: RANEXA ER PO SCH ×2 (10:26→21:57)
[2018-09-24] MEDS: TRADJENTA PO SCH (10:26)
[2018-09-24] MEDS: LASIX PO SCH (10:26)
[2018-09-24] MEDS: ZESTRIL PO SCH (10:26)
[2018-09-24] MEDS: CLARITIN PO SCH (10:26)
[2018-09-24] MEDS: SOLU-Medrol IV SCH ×2 (10:27→21:57)
[2018-09-24] MEDS: MOBIC PO SCH (10:27)
[2018-09-24] MEDS: FLONASE NS SCH (10:27)
[2018-09-24] MEDS: ELIQUIS PO SCH ×2 (10:28→21:57)
--- NOTE | 2018-09-24 10:59 | Progress Note ---
Assessment and Plan New onset atrial fibrillation with rapid ventricle response Acute systolic heart failure Acute COPD exacerbation Chest pain Coronary arterial disease status post bypass Bioprosthetic mitral valve Hypertension Diabetes Hyperlipidemia Smoker Recommend patient has moderate LV dysfunction has newly diagnosed cardiomyopathy and new systolic heart failure. Increase metoprolol to 50 mg 3 times a day. Give digoxin 0.25 mg every 6hrs 2 doses. Continue oral anticoagulation with elqiuis. At this time we will will be rate control and anticoagulation Subjective Date of service: 09/24/18 Principal diagnosis: afib and sob Interval history: pt states that for several months been having elevated heart rate shortness of breath has mildly improved and chest pain has improved but does have chronic back issues Objective Vital Signs Temp Pulse Pulse Resp Resp BP Pulse Ox 09/24/18 08:08 98 H 18 09/24/18 03:50 98.4 F 84 20 144/82 100 09/23/18 23:15 98.2 F 89 20 144/85 90 09/23/18 19:40 82 18 09/23/18 19:33 98.5 F 103 H 16 136/74 93 09/23/18 19:30 104 H 09/23/18 17:46 98.4 F 105 H 20 146/73 92 09/23/18 15:51 89 18 09/23/18 12:26 100.1 F H 90 18 157/74 92 - Physical Examination General: No Apparent Distress HEENT: Positive: PERRL, EOMI Neck: Positive: neck supple Cardiac: Positive: Irregularly Regular Lungs: Positive: clear to auscultation Neuro: Positive: Grossly Intact Abdomen: Positive: Soft Musculoskeletal: Erythematous Joints Extremities: Present: normal - Labs and Meds Cardiac Enzymes 09/23/18 Range/Units 14:57 CK-MB (CK-2) 1.9 (0.0-4.0) ng/mL - Imaging and Cardiology Echo: report reviewed (04/2017 normal LV function functioning bioprosthetic mitral valve), other (09/23/2018 moderate LV dysfunction EF 35to40% with functioning bioprosthetic mitral valve) Cardiac cath: report reviewed (05/2017 revealed occluded bypass grafts with a patent WILCOX to LAD and left main distal 50% circumflex small caliber 80-90% distally and RCA 100% with extensive [id number] collaterals but normal LV function) - Telemetry EKG Rhythm: Atrial Fibrillation (110 rate)
[2018-09-24] MEDS ORDERED: LOPRESSOR PO SCH (11:00)
[2018-09-24] MEDS: LANOXIN IV SCH ×2 (11:46→17:21)
[2018-09-24] MEDS ORDERED: NITROSTAT SL PRN (16:27)
--- NOTE | 2018-09-24 16:33 | Progress Note ---
Assessment and Plan Assessment and plan: 68-year-old woman who presents to the hospital with palpitations 2 weeks. She was seen by her clinical research scientist Dr. Deniz Mirza and sent to the hospital. She was sent to the hospital for atrial fibrillation with RVR Past medical history; hypertension, CAD, history of [place], CHF, diabetes, GERD, arthritis, COPD New-onset atrial fibrillation with RVR and hypercoagulable state Medications per cardiology, reculture medications optimize her clinical research scientist, discussed reduction and dietary -" eliquis for Anticoagulation/stroke prophylaxis COPD exacerbation Steroids nebs Chronic osteoarthritis with back pain Continue pain medications Pain medication seeking behavior Patient has been counseled about the risks of taking narcotics [id number], she verbalized understanding Preventative health counseling performed for 17 minutes Hypertensive urgency Optimize blood pressure medications DVT prophylaxis Patient fully anticoagulated on and requests History Interval history: Continues to complain of chronic back pain Shortness of breath and wheezing is improved No chest pain, no palpitations No nausea vomiting no fever Hospitalist Physical - Physical exam Narrative exam: General.: Appears well, no distress, nontoxic HEENT: Moist mucous membranes, extraocular muscles intact, no lymphadenopathy Neck: supple Cardiac: S1-S2 heard Lungs: wheezing is improved Abdomen: soft , nontender, nondistended, bowel sounds positive Extremities: no edema clubbing or cyanosis Skin: no rash or lesions Neurologic: no gross focal deficits Psych: calm, and cooperative - Constitutional Vitals: Temp Pulse Resp BP Pulse Ox 98.1 F 95 H 18 199/100 97 09/24/18 12:45 09/24/18 12:45 09/24/18 12:45 09/24/18 12:45 09/24/18 12:45 General appearance: Present: no acute distress Results - Labs CBC & Chem 7: 09/23/18 01:34 09/22/18 18:18 Labs: Laboratory Last Values WBC 9.7 K/mm3 (4.5-11.0) 09/22/18 18:18 RBC 3.95 M/mm3 (3.65-5.03) 09/22/18 18:18 Hgb 12.4 gm/dl (10.1-14.3) 09/23/18 01:34 Hct 37.4 % (30.3-42.9) 09/23/18 01:34 MCV 95 fl (79-97) 09/22/18 18:18 MCH 32 pg (28-32) 09/22/18 18:18 MCHC 33 % (30-34) 09/22/18 18:18 RDW 14.0 % (13.2-15.2) 09/22/18 18:18 Plt Count 193 K/mm3 (140-440) 09/23/18 01:34 Lymph % (Auto) 18.9 % (13.4-35.0) 09/22/18 18:18 [place] % (Auto) 12.0 % (0.0-7.3) H 09/22/18 18:18 Eos % (Auto) 1.7 % (0.0-4.3) 09/22/18 18:18 Baso % (Auto) 0.9 % (0.0-1.8) 09/22/18 18:18 Lymph # 1.8 K/mm3 (1.2-5.4) 09/22/18 18:18 [place] # 1.2 K/mm3 (0.0-0.8) H 09/22/18 18:18 Eos # 0.2 K/mm3 (0.0-0.4) 09/22/18 18:18 Baso # 0.1 K/mm3 (0.0-0.1) 09/22/18 18:18 Seg Neutrophils % 66.5 % (40.0-70.0) 09/22/18 18:18 Seg Neutrophils # 6.4 K/mm3 (1.8-7.7) 09/22/18 18:18 PT 13.9 Sec. (12.2-14.9) 09/23/18 01:34 INR 1.10 (0.87-1.13) 09/23/18 01:34 APTT 32.9 Sec. (24.2-36.6) 09/23/18 01:34 Heparin Anti-Xa Level 0.53 U.I./ml (0.3-0.7) 09/23/18 09:30 Sodium 138 mmol/L (137-145) 09/22/18 18:18 Potassium 4.4 mmol/L (3.6-5.0) 09/22/18 18:18 Chloride 103.6 mmol/L (98-107) 09/22/18 18:18 Carbon Dioxide 25 mmol/L (22-30) 09/22/18 18:18 14 mmol/L 09/22/18 18:18 BUN 12 mg/dL (7-17) 09/22/18 18:18 1.0 mg/dL (0.7-1.2) 09/22/18 18:18 Estimated GFR > 60 ml/min 09/22/18 18:18 12 % 09/22/18 18:18 Glucose 116 mg/dL (65-100) H 09/22/18 18:18 POC Glucose 190 (70-105) H 09/24/18 16:03 Calcium 8.6 mg/dL (8.4-10.2) 09/22/18 18:18 75 units/L (30-135) 09/23/18 14:57 CK-MB (CK-2) 1.9 ng/mL (0.0-4.0) 09/23/18 14:57 CK-MB (CK-2) Rel Index 2.5 (0-4) 09/23/18 14:57 < 0.010 ng/mL (0.00-0.029) 09/23/18 14:57 NT-Pro-B Natriuret Pep 2558 pg/mL (0-900) H 09/22/18 18:18 Active Medications - Current Medications Current Medications: Generic Name Dose Route Start Last Admin Trade Name Freq PRN Reason Stop Dose Admin Acetaminophen 650 mg 09/23/18 01:20 Tylenol PO Q4H PRN Headache Albuterol 2.5 mg 09/23/18 11:19 Proventil IH TID PRN Wheezing Albuterol/Ipratropium 1 ampul 09/23/18 14:00 09/24/18 14:35 Duoneb *Not For Prn Use* IH Not Given Q6HRT NEL Apixaban 5 mg 09/23/18 10:00 09/24/18 10:28 Eliquis PO 5 mg Q12HR NEL Administration Protocol Aspirin 81 mg 09/23/18 12:00 09/24/18 10:25 Halfprin Ec PO 81 mg DAILY NEL Administration Budesonide 0.5 mg 09/23/18 20:00 09/24/18 07:43 Pulmicort IH 0.5 mg Q12HRT NEL Administration Buspirone HCl 5 mg 09/23/18 10:00 09/24/18 10:26 Buspar PO 5 mg DAILY NEL Administration Dextrose 50 ml 09/23/18 11:29 D50w (25gm) Syringe IV PRN PRN Hypoglycemia Digoxin 0.25 mg 09/24/18 12:00 09/24/18 11:46 Lanoxin IV 09/24/18 18:01 0.25 mg Q6HR NEL Administration Duloxetine HCl 60 mg 09/23/18 13:00 09/24/18 10:25 Cymbalta PO 60 mg QDAY NEL Administration Fluticasone Propionate 100 mcg 09/23/18 12:00 09/24/18 10:27 Flonase NS 100 mcg DAILY NEL Administration Furosemide 40 mg 09/23/18 10:00 09/24/18 10:26 Lasix PO 40 mg QDAY NEL Administration Insulin Glargine 10 units 09/23/18 22:00 09/23/18 21:50 Lantus SUB-Q 10 units QHS NEL Administration Insulin Human Lispro 0 unit 09/23/18 11:30 09/24/18 12:31 Humalog SUB-Q 3 unit AC NEL Administration Protocol Insulin Human Regular 0 units 09/23/18 22:00 09/23/18 21:45 Humulin R SUB-Q 3 units QHS [facility] Administration Protocol Isosorbide Mononitrate 60 mg 09/23/18 10:00 09/24/18 10:25 Imdur PO 60 mg QDAY NEL Administration Linagliptin 5 mg 09/23/18 12:00 09/24/18 10:26 Tradjenta PO 5 mg QDAY NEL Administration Lisinopril 40 mg 09/24/18 16:28 Zestril PO QDAY NEL Lisinopril 40 mg 09/24/18 16:28 Zestril PO 09/24/18 16:29 ONCE ONE Loratadine 10 mg 09/24/18 10:00 09/24/18 10:26 Claritin PO 10 mg DAILY NEL Administration Meloxicam 15 mg 09/23/18 13:00 09/24/18 10:27 Mobic PO 15 mg QDAY NEL Administration Metformin HCl 500 mg 09/23/18 17:00 09/24/18 08:13 Glucophage PO 500 mg BIDDIAB NEL Administration Methylprednisolone Sodium Succinate 40 mg 09/23/18 12:00 09/24/18 10:27 Solu-Medrol IV 40 mg Q12HR NEL Administration Metoprolol Tartrate 50 mg 09/24/18 14:00 09/24/18 14:05 Lopressor PO 50 mg Q8HR NEL Administration Montelukast Sodium 10 mg 09/23/18 22:00 09/23/18 21:39 Singulair PO 10 mg QHS NEL Administration Nitroglycerin 0.4 mg 09/23/18 01:19 09/23/18 03:51 Nitrostat SL 0.4 mg .Q5MIN PRN Administration Chest Pain Nitroglycerin 0.4 mg 09/24/18 16:27 Nitrostat SL Q5MIN PRN Chest Pain Ondansetron HCl 4 mg 09/23/18 01:21 Zofran IV Q8H PRN Nausea And Vomiting Oxycodone/Acetaminophen 2 tab 09/24/18 12:22 09/24/18 14:05 Percocet 5/325 PO 2 tab Q6H PRN Administration Pain, Moderate (4-6) Pantoprazole Sodium 20 mg 09/24/18 10:00 09/24/18 10:26 Protonix PO 20 mg QDAY NEL Administration Ranolazine 500 mg 09/23/18 10:00 09/24/18 10:26 Ranexa Er PO 500 mg BID NEL Administration Tiotropium [place] 1 puff 09/23/18 12:00 09/24/18 10:20 Spiriva IH Not Given Q24HRT [facility] Nutrition/Malnutrition Assess - Dietary Evaluation Nutrition/Malnutrition Findings: Nutrition Notes Start: 09/23/18 11:14 Freq: Status: Active Protocol: Document 09/24/18 09:39 LP (Rec: 09/24/18 09:40 LP [id number]) Nutrition Notes Initial or Follow up Brief Note Subjective/Other Information Consult for diet education. Pt states denies need for diet education. Pt eating well now. Consumed 100% of breakfast this AM. Nutrition Intervention Follow-Up By: 09/27/18 Additional Comments Follow for stable intakes.
[2018-09-24] MEDS ORDERED: ZESTRIL PO ONE (17:00)
[2018-09-24] MEDS: SINGULAIR PO SCH (21:57)
[2018-09-24] MEDS: LANTUS SUB-Q SCH (21:58)
[2018-09-24] MEDS: HumuLIN R SUB-Q SCH (22:00)
[2018-09-25] MEDS: PERCOCET 5/325 PO PRN ×5 (03:09→21:54)
[2018-09-25] MEDS: DUONEB *Not for PRN Use IH SCH ×4 (03:20→21:30)
[2018-09-25 05:59] LABS: Hematocrit 38.6 % (30.3-42.9); Hemoglobin 12.6 gm/dl (10.1-14.3)
[2018-09-25] MEDS: LOPRESSOR PO SCH ×3 (06:09→21:52)
[2018-09-25 06:23] LABS: Albumin 3.7 g/dL (3.9-5); Calcium 8.4 mg/dL (8.4-10.2)
[2018-09-25] MEDS: PULMICORT IH SCH ×2 (07:19→21:30)
[2018-09-25] MEDS: MOBIC PO SCH (09:07)
[2018-09-25] MEDS: HumaLOG SUB-Q SCH ×3 (09:08→16:45)
[2018-09-25] MEDS: TRADJENTA PO SCH (09:15)
[2018-09-25] MEDS: SPIRIVA IH SCH (09:31)
[2018-09-25] MEDS ORDERED: ZESTRIL PO SCH (10:00)
[2018-09-25] MEDS ORDERED: NACL 0.45% 1000 ML 1,000 ML IV SCH (10:00)
[2018-09-25] MEDS: FLONASE NS SCH (10:00)
--- NOTE | 2018-09-25 10:40 | Consultation ---
History of Present Illness - Reason for Consult Consult date: 09/25/18 - History of Present Illness This is a 68 yo AAF with patient medical history of hypertension, T2 DM, hyperlipidemia, CAD s/p CABG in 1997, valvular heart disease with a bioprosthetic MV in 2009, who presents to the hospital with palpitations 2 weeks. She was seen by her program director group work Dr. Deniz Mirza and was sent to the hospital. Pt was started on metoprolol, digoxin for rate/rhythm control started anticoagulation with elqiuis. Labs showed elevated BUN/Cr to 42/1.9mg/dl from admission BUN/Cr of 12/1.0mg/dl for which renal consult is requested. Pt denies previous renal disease, no recent NSAIDs use or IV contrast exposure reported. Pt denies fever, chills, n/v/d, dysuria, abd pain, rash, blurry vision. She reports REAL, orthopnea. Past History Past Medical History: CAD, diabetes, hypertension, hyperlipidemia Past Surgical History: CABG, total knee replacement, Other (bioprosthetic mitral valve replacement in 2009) Social history: denies: smoking, alcohol abuse, prescription drug abuse Family history: denies: no significant family history Medications and Allergies Allergies Allergy/AdvReac Type Severity Reaction Status Date / Time No Known Allergies Allergy Unverified 05/19/17 07:38 Home Medications Medication Instructions Recorded Confirmed Last Taken Type ALBUTEROL NEB's [Proventil] 2.5 mg IH TID PRN 05/19/17 09/22/18 1 Week Ago History ~05/12/17 Aspirin [Aspirin EC] 81 mg PO DAILY 05/19/17 09/22/18 05/18/17 History Carvedilol [Coreg] 12.5 mg PO BID 05/19/17 09/22/18 05/18/17 History Duloxetine HCl [DULoxetine] 60 mg PO DAILY 05/19/17 09/22/18 05/18/17 History Fluticasone Propionate [Flovent 2 puff INHALATION BID 05/19/17 09/22/18 05/17/17 History 110 MCG/PUFF HFA] Fluticasone [Flonase] 1 inh INNOSTRIL DAILY 05/19/17 09/22/18 1 Week Ago History ~05/12/17 Furosemide [Lasix TAB] 40 mg PO DAILY 05/19/17 09/22/18 05/18/17 History ISOSORBIDE MONOnitrate [Imdur ER] 60 mg PO QDAY 05/19/17 09/22/18 05/18/17 History Insulin Glargine,Hum.rec.anlog 10 unit PO DAILY 05/19/17 09/22/18 05/18/17 History [Lantus Solostar] Loratadine 10 mg PO DAILY 05/19/17 09/22/18 05/17/17 History Meloxicam 15 mg PO DAILY 05/19/17 09/22/18 05/18/17 History Metformin HCl 500 mg PO BID 05/19/17 09/22/18 1 Week Ago History ~05/12/17 Montelukast [Singulair] 10 mg PO QPM 05/19/17 09/22/18 05/18/17 History Nitroglycerin 0.4 mg SL Q5MIN PRN 05/19/17 09/22/18 05/14/17 History Omeprazole 20 mg PO DAILY 05/19/17 09/22/18 05/18/17 History Ramipril 5 mg PO DAILY 05/19/17 09/22/18 05/18/17 History Ranolazine [Ranexa] 500 mg PO BID #60 tab.er.12h 05/19/17 09/22/18 Unknown Rx Saxagliptin HCl [Onglyza] 5 mg PO DAILY 05/19/17 09/22/18 05/18/17 History Tiotropium [place] [Spiriva] 18 mcg IH DAILY 05/19/17 09/22/18 05/16/17 History Zolpidem [Ambien] 10 mg PO QHS 05/19/17 09/22/18 4 Months Ago History ~01/18/17 busPIRone [Buspar] 5 mg PO DAILY 05/19/17 09/22/18 05/18/17 History oxyCODONE /ACETAMINOPHEN [Percocet 1 tab PO Q6HR PRN 05/19/17 09/22/18 05/19/17 History 5/325 mg] Active Meds: Active Medications Acetaminophen (Tylenol) 650 mg PO Q4H PRN PRN Reason: Headache Albuterol (Proventil) 2.5 mg IH TID PRN PRN Reason: Wheezing Albuterol/Ipratropium (Duoneb *Not For Prn Use*) 1 ampul IH Q6HRT [facility] Last Admin: 09/25/18 07:19 Dose: 1 ampul Documented by: Apixaban (Eliquis) 5 mg PO Q12HR [facility]; Protocol Last Admin: 09/24/18 21:57 Dose: 5 mg Documented by: Aspirin (Halfprin Ec) 81 mg PO DAILY [facility] Last Admin: 09/24/18 10:25 Dose: 81 mg Documented by: Budesonide (Pulmicort) 0.5 mg IH Q12HRT [facility] Last Admin: 09/25/18 07:19 Dose: 0.5 mg Documented by: Buspirone HCl (Buspar) 5 mg PO DAILY [facility] Last Admin: 09/24/18 10:26 Dose: 5 mg Documented by: Dextrose (D50w (25gm) Syringe) 50 ml IV PRN PRN PRN Reason: Hypoglycemia Duloxetine HCl (Cymbalta) 60 mg PO QDAY [facility] Last Admin: 09/24/18 10:25 Dose: 60 mg Documented by: Fluticasone Propionate (Flonase) 100 mcg NS DAILY [facility] Last Admin: 09/24/18 10:27 Dose: 100 mcg Documented by: Furosemide (Lasix) 40 mg PO BID [facility]: 09/24/18 21:58 Dose: 10 units Documented by: Insulin Human Lispro (Humalog) 0 unit SUB-Q [facility]; Protocol Last Admin: 09/25/18 09:08 Dose: 4 unit Documented by: Insulin Human Regular ([facility]ulin R) [facility]; Protocol Last Admin: 09/24/18 22:00 Dose: 1 units Documented by: Isosorbide Mononitrate (Imdur) 60 mg PO QDAY [facility] Last Admin: 09/24/18 10:25 Dose: 60 mg Documented by: Linagliptin (Tradjenta) 5 mg PO QDAY [facility] Last Admin: 09/25/18 09:15 Dose: 5 mg Documented by: Loratadine (Claritin) 10 mg PO DAILY [facility] Last Admin: 09/24/18 10:26 Dose: 10 mg Documented by: Metformin HCl (Glucophage) 500 mg PO BIDDIAB [facility] Last Admin: 09/24/18 17:13 Dose: 500 mg Documented by: Methylprednisolone Sodium Succinate (Solu-Medrol) 40 mg IV Q12HR [facility] Last Admin: 09/24/18 21:57 Dose: 40 mg Documented by: Metoprolol Tartrate (Lopressor) 50 mg PO Q8HR [facility] Last Admin: 09/25/18 06:09 Dose: 50 mg Documented by: Montelukast Sodium (Singulair) 10 mg PO QHS [facility] Last Admin: 09/24/18 21:57 Dose: 10 mg Documented by: Nitroglycerin (Nitrostat) 0.4 mg SL Q5MIN PRN PRN Reason: Chest Pain Ondansetron HCl (Zofran) 4 mg IV Q8H PRN PRN Reason: Nausea And Vomiting Oxycodone/Acetaminophen (Percocet 5/325) 2 tab PO Q6H PRN PRN Reason: Pain, Moderate (4-6) Last Admin: 09/25/18 09:08 Dose: 2 tab Documented by: Pantoprazole Sodium (Protonix) 20 mg PO QDAY [facility] Last Admin: 09/24/18 10:26 Dose: 20 mg Documented by: Ranolazine (Ranexa Er) 500 mg PO BID [facility] Last Admin: 09/24/18 21:57 Dose: 500 mg Documented by: Tiotropium [place] (Spiriva) 1 puff IH Q24HRT [facility] Last Admin: 09/25/18 09:31 Dose: 1 puff Documented by: Exam - Vital Signs Vital signs: Vital Signs Pulse Resp BP Pulse Ox 123 H 20 166/93 96 09/22/18 17:46 09/22/18 17:46 09/22/18 17:46 09/22/18 17:46 - General Appearance General appearance: well-developed, well-nourished, appears stated age, obese EENT: ATNC, PERRL, mucous membranes moist Neck: Present: neck supple, JVD/HJR Respiratory: Decreased Breath Sounds Heart: irregular, S1S2 Gastrointestinal: Present: normoactive bowel sounds, obese Integumentary: no rash, other (no edema ) Results - Lab Results 09/25/18 04:52 09/25/18 04:52 Most recent lab results Calcium 8.4 mg/dL (8.4-10.2) 09/25/18 04:52 Assessment and Plan - Patient Problems (1) Acute kidney injury Current Visit: Yes Status: Acute Plan to address problem: Suspect LULU secondary to acute cardiorenal syndrome in the setting of acute A- fib with RVR, acute on chronic systolic HF. Recommend to hold off IV NS, hold lisinopril given also development of mild hyperkalemia. increase lasix to 40mg po bid to target net negative fluid balance 1L/day. Avoid nephrotoxins, NSAIDs, IV contrast. check UA, urine lytes, urine protein/cr ratio. Further management depending on patient's clinical course (2) Hyperkalemia Current Visit: Yes Status: Acute (3) Type 2 diabetes mellitus with diabetic chronic kidney disease Current Visit: Yes Status: Acute Plan to address problem: glucose control as per primary attending (4) Atrial fibrillation with RVR Current Visit: Yes Status: Acute Plan to address problem: rate control/anticoagulation as per cardiology (5) CAD (coronary artery disease) Current Visit: No Status: Chronic (6) History of mitral valve replacement with bioprosthetic valve Current Visit: No Status: Chronic (7) Hypertensive chronic kidney disease with stage 1 through stage 4 chronic kid andrew disease, or unspecified chronic kidney disease Current Visit: Yes Status: Acute Plan to address problem: cont BP control with metoprolol, hydralazine, lasix dose increased to 40mg po bid and lisinopril is on hold due to LULU.
--- NOTE | 2018-09-25 10:44 | Progress Note ---
Assessment and Plan The patient's cardiac status is improved. Continue Lasix, beta mindy, aspirin, Eliquis and anti-ischemic therapy. Will hold on ACEi/ARB d/t renal insufficiency. Will add hydralazine to optimize blood pressure. The patient has been seen in conjunction with Dr. Larson, who agrees with the assessment and plan. Subjective Date of service: 09/25/18 Principal diagnosis: afib and sob Interval history: Patient sitting up in bed in NAD. She remains in afib, but with rates in the 70s. Reports SOB and CP are improved, but still notes some left-sided sharp pain. She appears to be very anxious during examination. BP notably elevated this morning. Objective Last Vital Signs Temp 98.4 F 09/25/18 07:46 Pulse 83 09/25/18 07:46 Resp 18 09/25/18 07:46 BP 164/78 09/25/18 07:46 Pulse Ox 98 09/25/18 10:25 - Physical Examination General: No Apparent Distress HEENT: Positive: PERRL, EOMI Neck: Positive: neck supple Cardiac: Positive: irregularly irregular Lungs: Positive: Normal Exam Neuro: Positive: Grossly Intact Abdomen: Positive: Soft Musculoskeletal: Erythematous Joints, other (c/o chronic back pain) Extremities: Present: normal - Labs and Meds Cardiac Enzymes 09/25/18 Range/Units 04:52 AST 12 (5-40) units/L CBC 09/25/18 Range/Units 04:52 Hgb 12.6 (10.1-14.3) gm/dl Hct 38.6 (30.3-42.9) % Plt Count 233 (140-440) K/mm3 Comprehensive Metabolic Panel 09/25/18 Range/Units 04:52 Sodium 138 (137-145) mmol/L Potassium 5.1 H (3.6-5.0) mmol/L Chloride 99.7 (98-107) mmol/L Carbon Dioxide 23 (22-30) mmol/L BUN 42 H (7-17) mg/dL Creatinine 1.9 H D (0.7-1.2) mg/dL Glucose 259 H (65-100) mg/dL Calcium 8.4 (8.4-10.2) mg/dL AST 12 (5-40) units/L ALT 16 (7-56) units/L Alkaline Phosphatase 169 H (35-129) units/L Total Protein 7.7 (6.3-8.2) g/dL Albumin 3.7 L (3.9-5) g/dL - Imaging and Cardiology Echo: report reviewed (04/2017 normal LV function functioning bioprosthetic mitral valve), other (09/23/2018 moderate LV dysfunction EF 35to40% with functioning bioprosthetic mitral valve) Cardiac cath: report reviewed (05/2017 revealed occluded bypass grafts with a patent WILCOX to LAD and left main distal 50% circumflex small caliber 80-90% distally and RCA 100% with extensive [id number] collaterals but normal LV function) - Telemetry EKG Rhythm: Atrial Fibrillation
[2018-09-25] MEDS ORDERED: APRESOLINE IV PRN (11:26)
--- NOTE | 2018-09-25 11:27 | Progress Note ---
Assessment and Plan Assessment and plan: 68-year-old woman who presents to the hospital with palpitations 2 weeks. She was seen by her mold capper helper Dr. Deniz Mirza and sent to the hospital. She was sent to the hospital for atrial fibrillation with RVR Past medical history; hypertension, CAD, history of [place], CHF, diabetes, GERD, arthritis, COPD New-onset atrial fibrillation with RVR and hypercoagulable state Medications per cardiology, reculture medications optimize her mold capper helper, discussed reduction and dietary -" eliquis for Anticoagulation/stroke prophylaxis COPD exacerbation Steroids nebs Chronic osteoarthritis with back pain Continue pain medications Pain medication seeking behavior Patient has been counseled about the risks of taking narcotics [id number], she verbalized understanding Preventative health counseling performed for 17 minutes Hypertensive urgency Optimize blood pressure medications Acute kidney injury/vasomotor nephropathy Creatinine has trended up, we'll add IV fluids, and nephrology consult. Have stopped NSAID and YOUNG inhibitor DVT prophylaxis Patient fully anticoagulated on and requests History Interval history: Continues to complain of chronic back pain Shortness of breath and wheezing is improved No chest pain, no palpitations No nausea vomiting no fever Hospitalist Physical - Physical exam Narrative exam: General.: Appears well, no distress, nontoxic HEENT: Moist mucous membranes, extraocular muscles intact, no lymphadenopathy Neck: supple Cardiac: S1-S2 heard Lungs: wheezing is improved Abdomen: soft , nontender, nondistended, bowel sounds positive Extremities: no edema clubbing or cyanosis Skin: no rash or lesions Neurologic: no gross focal deficits Psych: calm, and cooperative - Constitutional Vitals: Temp Pulse Resp BP Pulse Ox 98.4 F 83 18 164/78 98 09/25/18 07:46 09/25/18 07:46 09/25/18 07:46 09/25/18 07:46 09/25/18 10:25 General appearance: Present: no acute distress Results - Labs CBC & Chem 7: 09/25/18 04:52 09/25/18 04:52 Labs: Laboratory Last Values WBC 9.7 K/mm3 (4.5-11.0) 09/22/18 18:18 RBC 3.95 M/mm3 (3.65-5.03) 09/22/18 18:18 Hgb 12.6 gm/dl (10.1-14.3) 09/25/18 04:52 Hct 38.6 % (30.3-42.9) 09/25/18 04:52 MCV 95 fl (79-97) 09/22/18 18:18 MCH 32 pg (28-32) 09/22/18 18:18 MCHC 33 % (30-34) 09/22/18 18:18 RDW 14.0 % (13.2-15.2) 09/22/18 18:18 Plt Count 233 K/mm3 (140-440) 09/25/18 04:52 Lymph % (Auto) 18.9 % (13.4-35.0) 09/22/18 18:18 [place] % (Auto) 12.0 % (0.0-7.3) H 09/22/18 18:18 Eos % (Auto) 1.7 % (0.0-4.3) 09/22/18 18:18 Baso % (Auto) 0.9 % (0.0-1.8) 09/22/18 18:18 Lymph # 1.8 K/mm3 (1.2-5.4) 09/22/18 18:18 [place] # 1.2 K/mm3 (0.0-0.8) H 09/22/18 18:18 Eos # 0.2 K/mm3 (0.0-0.4) 09/22/18 18:18 Baso # 0.1 K/mm3 (0.0-0.1) 09/22/18 18:18 Seg Neutrophils % 66.5 % (40.0-70.0) 09/22/18 18:18 Seg Neutrophils # 6.4 K/mm3 (1.8-7.7) 09/22/18 18:18 PT 13.9 Sec. (12.2-14.9) 09/23/18 01:34 INR 1.10 (0.87-1.13) 09/23/18 01:34 APTT 32.9 Sec. (24.2-36.6) 09/23/18 01:34 Heparin Anti-Xa Level 0.53 U.I./ml (0.3-0.7) 09/23/18 09:30 Sodium 138 mmol/L (137-145) 09/25/18 04:52 Potassium 5.1 mmol/L (3.6-5.0) H 09/25/18 04:52 Chloride 99.7 mmol/L (98-107) 09/25/18 04:52 Carbon Dioxide 23 mmol/L (22-30) 09/25/18 04:52 20 mmol/L 09/25/18 04:52 BUN 42 mg/dL (7-17) H 09/25/18 04:52 1.9 mg/dL (0.7-1.2) H D 09/25/18 04:52 Estimated GFR 32 ml/min 09/25/18 04:52 22 % 09/25/18 04:52 Glucose 259 mg/dL (65-100) H 09/25/18 04:52 POC Glucose 190 (70-105) H 09/24/18 16:03 Calcium 8.4 mg/dL (8.4-10.2) 09/25/18 04:52 0.20 mg/dL (0.1-1.2) 09/25/18 04:52 AST 12 units/L (5-40) 09/25/18 04:52 ALT 16 units/L (7-56) 09/25/18 04:52 169 units/L (35-129) H 09/25/18 04:52 75 units/L (30-135) 09/23/18 14:57 CK-MB (CK-2) 1.9 ng/mL (0.0-4.0) 09/23/18 14:57 CK-MB (CK-2) Rel Index 2.5 (0-4) 09/23/18 14:57 < 0.010 ng/mL (0.00-0.029) 09/23/18 14:57 NT-Pro-B Natriuret Pep 2558 pg/mL (0-900) H 09/22/18 18:18 7.7 g/dL (6.3-8.2) 09/25/18 04:52 3.7 g/dL (3.9-5) L 09/25/18 04:52 0.9 % 09/25/18 04:52 Active Medications - Current Medications Current Medications: Generic Name Dose Route Start Last Admin Trade Name Freq PRN Reason Stop Dose Admin Acetaminophen 650 mg 09/23/18 01:20 Tylenol PO Q4H PRN Headache Albuterol 2.5 mg 09/23/18 11:19 Proventil IH TID PRN Wheezing Albuterol/Ipratropium 1 ampul 09/23/18 14:00 09/25/18 07:19 Duoneb *Not For Prn Use* IH 1 ampul Q6HRT NEL Administration Apixaban 5 mg 09/23/18 10:00 09/24/18 21:57 Eliquis PO 5 mg Q12HR NEL Administration Protocol Aspirin 81 mg 09/23/18 12:00 09/24/18 10:25 Halfprin Ec PO 81 mg DAILY NEL Administration Budesonide 0.5 mg 09/23/18 20:00 09/25/18 07:19 Pulmicort IH 0.5 mg Q12HRT NEL Administration Buspirone HCl 5 mg 09/23/18 10:00 09/24/18 10:26 Buspar PO 5 mg DAILY NEL Administration Dextrose 50 ml 09/23/18 11:29 D50w (25gm) Syringe IV PRN PRN Hypoglycemia Duloxetine HCl 60 mg 09/23/18 13:00 09/24/18 10:25 Cymbalta PO 60 mg QDAY NEL Administration Fluticasone Propionate 100 mcg 09/23/18 12:00 09/24/18 10:27 Flonase NS 100 mcg DAILY NEL Administration Furosemide 40 mg 09/25/18 18:00 Lasix PO BID@0600,1800 [facility] Hydralazine HCl 25 mg 09/25/18 14:00 Apresoline PO Q8HR [facility] Insulin Glargine 10 units 09/23/18 22:00 09/24/18 21:58 Lantus SUB-Q 10 units QHS NEL Administration Insulin Human Lispro 0 unit 09/23/18 11:30 09/25/18 09:08 Humalog SUB-Q 4 unit AC [facility] Administration Protocol Insulin Human Regular 0 units 09/23/18 22:00 09/24/18 22:00 Humulin R SUB-Q 1 units QHS [facility] Administration Protocol Isosorbide Mononitrate 60 mg 09/23/18 10:00 09/24/18 10:25 Imdur PO 60 mg QDAY NEL Administration Linagliptin 5 mg 09/23/18 12:00 09/25/18 09:15 Tradjenta PO 5 mg QDAY NEL Administration Loratadine 10 mg 09/24/18 10:00 09/24/18 10:26 Claritin PO 10 mg DAILY NEL Administration Metformin HCl 500 mg 09/23/18 17:00 09/24/18 17:13 Glucophage PO 500 mg BIDDIAB NEL Administration Methylprednisolone Sodium Succinate 40 mg 09/23/18 12:00 09/24/18 21:57 Solu-Medrol IV 40 mg Q12HR NEL Administration Metoprolol Tartrate 50 mg 09/24/18 14:00 09/25/18 06:09 Lopressor PO 50 mg Q8HR NEL Administration Montelukast Sodium 10 mg 09/23/18 22:00 09/24/18 21:57 Singulair PO 10 mg QHS NEL Administration Nitroglycerin 0.4 mg 09/24/18 16:27 Nitrostat SL Q5MIN PRN Chest Pain Ondansetron HCl 4 mg 09/23/18 01:21 Zofran IV Q8H PRN Nausea And Vomiting Oxycodone/Acetaminophen 2 tab 09/24/18 12:22 09/25/18 09:08 Percocet 5/325 PO 2 tab Q6H PRN Administration Pain, Moderate (4-6) Pantoprazole Sodium 20 mg 09/24/18 10:00 09/24/18 10:26 Protonix PO 20 mg QDAY NEL Administration Ranolazine 500 mg 09/23/18 10:00 09/24/18 21:57 Ranexa Er PO 500 mg BID NEL Administration Tiotropium [place] 1 puff 09/23/18 12:00 09/25/18 09:31 Spiriva IH 1 puff Q24HRT NEL Administration Nutrition/Malnutrition Assess - Dietary Evaluation Nutrition/Malnutrition Findings: Nutrition Notes Start: 09/23/18 11:14 Freq: Status: Active Protocol: Document 09/24/18 09:39 LP (Rec: 09/24/18 09:40 LP [email or web address]) Nutrition Notes Initial or Follow up Brief Note Subjective/Other Information Consult for diet education. Pt states denies need for diet education. Pt eating well now. Consumed 100% of breakfast this AM. Nutrition Intervention Follow-Up By: 09/27/18 Additional Comments Follow for stable intakes.
[2018-09-25] MEDS: ELIQUIS PO SCH ×2 (11:41→21:51)
[2018-09-25] MEDS: IMDUR PO SCH (11:41)
[2018-09-25] MEDS: GLUCOPHAGE PO SCH (11:41)
[2018-09-25] MEDS: RANEXA ER PO SCH ×2 (11:41→21:52)
[2018-09-25] MEDS: HALFPRIN EC PO SCH (11:42)
[2018-09-25] MEDS: CLARITIN PO SCH (11:42)
[2018-09-25] MEDS: PROTONIX PO SCH (11:42)
[2018-09-25] MEDS: CYMBALTA PO SCH (11:42)
[2018-09-25] MEDS: DELTASONE PO SCH (11:51)
[2018-09-25] MEDS: PROCARDIA XL PO SCH ×2 (11:59→21:51)
[2018-09-25] MEDS: BENADRYL PO PRN (12:02)
[2018-09-25] MEDS: APRESOLINE PO SCH ×2 (13:08→21:51)
[2018-09-25] MEDS: BUSPAR PO SCH (13:08)
[2018-09-25] MEDS ORDERED: SENOKOT S PO PRN (14:31)
[2018-09-25] MEDS: MIRALAX 3350 PO SCH (17:11)
[2018-09-25] MEDS: LASIX PO SCH (17:11)
[2018-09-25 17:14] LABS: Creatinine,Urine 138.8 mg/dL (0.1-20.0)
[2018-09-25 17:15] LABS: Bilirubin,Urine NEG (Negative); Blood,Urine NEG (Negative); Color,Urine Yellow (Yellow); Mucus,Urine FEW /HPF; Protein,Urine <15 mg/dL mg/dL (Negative); Urobilinogen,Urine < 2.0 mg/dL (<2.0)
[2018-09-25] MEDS: DEEP SEA NS SCH (21:52)
[2018-09-25] MEDS: SINGULAIR PO SCH (21:52)
[2018-09-25] MEDS: LANTUS SUB-Q SCH (21:53)
[2018-09-25] MEDS: HumuLIN R SUB-Q SCH (21:54)
[2018-09-25] MEDS ORDERED: LASIX PO SCH (22:00)
[2018-09-26] MEDS: PERCOCET 5/325 PO PRN ×6 (01:43→23:52)
[2018-09-26] MEDS: DUONEB *Not for PRN Use IH SCH ×4 (02:26→20:24)
[2018-09-26 05:10] LABS: Calcium 8.4 mg/dL (8.4-10.2)
[2018-09-26] MEDS: LOPRESSOR PO SCH ×3 (05:52→21:56)
[2018-09-26] MEDS: LASIX PO SCH ×2 (05:52→17:52)
[2018-09-26] MEDS: APRESOLINE PO SCH ×3 (05:53→21:55)
[2018-09-26] MEDS: PULMICORT IH SCH ×2 (08:07→20:24)
[2018-09-26] MEDS: SPIRIVA IH SCH (08:07)
[2018-09-26] MEDS: HumaLOG SUB-Q SCH ×3 (09:21→17:06)
--- NOTE | 2018-09-26 10:12 | Progress Note ---
Assessment and Plan - Patient Problems (1) Acute kidney injury Current Visit: Yes Status: Acute Plan to address problem: Suspect LULU secondary to acute cardiorenal syndrome in the setting of acute A- fib with RVR, acute on chronic systolic HF. Recommend to hold IV NS, and lisinopril given also development of mild hyperkalemia. Cont lasix to 40mg po bi d to target net negative fluid balance 1L/day. UA showed no evidence of hematuria/proteinuria to suggest acute glomerular injury. Avoid nephrotoxins, NSAIDs, IV contrast. Further management depending on patient's clinical course (2) Hyperkalemia Current Visit: Yes Status: Acute Plan to address problem: resolved. cont 2g K renal diet (3) Type 2 diabetes mellitus with diabetic chronic kidney disease Current Visit: Yes Status: Acute Plan to address problem: glucose control as per primary attending (4) Atrial fibrillation with RVR Current Visit: Yes Status: Acute Plan to address problem: rate control/anticoagulation as per cardiology (5) CAD (coronary artery disease) Current Visit: No Status: Chronic (6) History of mitral valve replacement with bioprosthetic valve Current Visit: No Status: Chronic (7) Hypertensive chronic kidney disease with stage 1 through stage 4 chronic kidney disease, or unspecified chronic kidney disease Current Visit: Yes Status: Acute Plan to address problem: BP controlled, monitor on current meds Subjective Date of service: 09/26/18 Principal diagnosis: afib and sob Interval history: Patient awake, alert, in no acute respiratory distress. Objective - Vital Signs Vital signs: Vital Signs - 12hr 09/26/18 09/26/18 09/26/18 00:16 01:43 02:27 Temperature 98 F Pulse Rate 89 Pulse Rate [ 100 H Anterior Bilateral Throughout] Respiratory 18 20 Rate Respiratory 19 Rate [Anterior Bilateral Throughout] Respiratory Rate [Chest] Blood Pressure Blood Pressure 134/63 [Right] O2 Sat by Pulse 95 Oximetry 09/26/18 09/26/18 09/26/18 04:37 05:52 05:53 Temperature 98 F Pulse Rate 83 85 85 Pulse Rate [ Anterior Bilateral Throughout] Respiratory 18 20 Rate Respiratory Rate [Anterior Bilateral Throughout] Respiratory Rate [Chest] Blood Pressure 139/63 139/63 Blood Pressure 139/63 [Right] O2 Sat by Pulse 99 Oximetry 09/26/18 09/26/18 09/26/18 06:36 08:32 08:43 Temperature 98.5 F Pulse Rate 82 Pulse Rate [ 85 Anterior Bilateral Throughout] Respiratory 18 Rate Respiratory 18 Rate [Anterior Bilateral Throughout] Respiratory 20 Rate [Chest] Blood Pressure Blood Pressure 112/56 [Right] O2 Sat by Pulse 86 Oximetry - General Appearance General appearance: well-developed, well-nourished, appears stated age, obese EENT: ATNC, PERRL, mucous membranes moist Neck: JVD Respiratory: Present: Decreased Breath Sounds Cardiology: regular, S1S2 Gastrointestinal: normoactive bowel sounds, obese Integumentary: no rash, other (no edema ) Neurologic: no focal deficit, alert and oriented x3, strength 5/5, CN 3-12 intac t Psychiatric: mood/affect appropriate, cooperative - Lab 09/25/18 04:52 09/26/18 04:08 Most recent lab results Calcium 8.4 mg/dL (8.4-10.2) 09/26/18 04:08 138.8 mg/dL (0.1-20.0) H 09/25/18 10:38 65 mmol/L 09/25/18 10:38 27 mg/dL (5-11.8) H 09/25/18 10:38 Medications & Allergies - Medications Allergies/Adverse Reactions: Allergies No Known Allergies Allergy (Unverified 05/19/17 07:38) Home Medications: Home Medications Medication Instructions Recorded Confirmed Last Taken Type ALBUTEROL NEB's [Proventil] 2.5 mg IH TID PRN 05/19/17 09/22/18 1 Week Ago History ~05/12/17 Aspirin [Aspirin EC] 81 mg PO DAILY 05/19/17 09/22/18 05/18/17 History Carvedilol [Coreg] 12.5 mg PO BID 05/19/17 09/22/18 05/18/17 History Duloxetine HCl [DULoxetine] 60 mg PO DAILY 05/19/17 09/22/18 05/18/17 History Fluticasone Propionate [Flovent 2 puff INHALATION BID 05/19/17 09/22/18 05/17/17 History 110 MCG/PUFF HFA] Fluticasone [Flonase] 1 inh INNOSTRIL DAILY 05/19/17 09/22/18 1 Week Ago History ~05/12/17 Furosemide [Lasix TAB] 40 mg PO DAILY 05/19/17 09/22/18 05/18/17 History ISOSORBIDE MONOnitrate [Imdur ER] 60 mg PO QDAY 05/19/17 09/22/18 05/18/17 History Insulin Glargine,Hum.rec.anlog 10 unit PO DAILY 05/19/17 09/22/18 05/18/17 History [Lantus Solostar] Loratadine 10 mg PO DAILY 05/19/17 09/22/18 05/17/17 History Meloxicam 15 mg PO DAILY 05/19/17 09/22/18 05/18/17 History Metformin HCl 500 mg PO BID 05/19/17 09/22/18 1 Week Ago History ~05/12/17 Montelukast [Singulair] 10 mg PO QPM 05/19/17 09/22/18 05/18/17 History Nitroglycerin 0.4 mg SL Q5MIN PRN 05/19/17 09/22/18 05/14/17 History Omeprazole 20 mg PO DAILY 05/19/17 09/22/18 05/18/17 History Ramipril 5 mg PO DAILY 05/19/17 09/22/18 05/18/17 History Ranolazine [Ranexa] 500 mg PO BID #60 tab.er.12h 05/19/17 09/22/18 Unknown Rx Saxagliptin HCl [Onglyza] 5 mg PO DAILY 05/19/17 09/22/18 05/18/17 History Tiotropium [place] [Spiriva] 18 mcg IH DAILY 05/19/17 09/22/18 05/16/17 History Zolpidem [Ambien] 10 mg PO QHS 05/19/17 09/22/18 4 Months Ago History ~01/18/17 busPIRone [Buspar] 5 mg PO DAILY 05/19/17 09/22/18 05/18/17 History oxyCODONE /ACETAMINOPHEN [Percocet 1 tab PO Q6HR PRN 05/19/17 09/22/18 05/19/17 History 5/325 mg] Active Medications: Generic Name Dose Route Start Last Admin Trade Name Freq PRN Reason Stop Dose Admin Acetaminophen 650 mg 09/23/18 01:20 Tylenol PO Q4H PRN Headache Albuterol 2.5 mg 09/23/18 11:19 Proventil IH TID PRN Wheezing Albuterol/Ipratropium 1 ampul 09/23/18 14:00 09/26/18 08:07 Duoneb *Not For Prn Use* IH 1 ampul Q6HRT NEL Administration Apixaban 5 mg 09/23/18 10:00 09/25/18 21:51 Eliquis PO 5 mg Q12HR NEL Administration Protocol Aspirin 81 mg 09/23/18 12:00 09/25/18 11:42 Halfprin Ec PO 81 mg DAILY NEL Administration Budesonide 0.5 mg 09/23/18 20:00 09/26/18 08:07 Pulmicort IH 0.5 mg Q12HRT NEL Administration Buspirone HCl 5 mg 09/23/18 10:00 09/25/18 13:08 Buspar PO 5 mg DAILY NEL Administration Dextrose 50 ml 09/23/18 11:29 D50w (25gm) Syringe IV PRN PRN Hypoglycemia Diphenhydramine HCl 25 mg 09/25/18 11:47 09/25/18 12:02 Benadryl PO 25 mg Q6H PRN Administration allergies Duloxetine HCl 60 mg 09/23/18 13:00 09/25/18 11:42 Cymbalta PO 60 mg QDAY NEL Administration Fluticasone Propionate 100 mcg 09/23/18 12:00 09/25/18 10:00 Flonase NS Not Given DAILY NEL Furosemide 40 mg 09/25/18 18:00 09/26/18 05:52 Lasix PO 40 mg BID@0600,1800 NEL Administration Hydralazine HCl 25 mg 09/25/18 14:00 09/26/18 05:53 Apresoline PO 25 mg Q8HR NEL Administration Hydralazine HCl 10 mg 09/25/18 11:26 Apresoline IV Q4HR PRN BP >160/100 Insulin Glargine 10 units 09/23/18 22:00 09/25/18 21:53 Lantus SUB-Q 10 units QHS NEL Administration Insulin Human Lispro 0 unit 09/23/18 11:30 09/26/18 09:21 Humalog SUB-Q 3 unit AC NEL Administration Protocol Insulin Human Regular 0 units 09/23/18 22:00 09/25/18 21:54 Humulin R SUB-Q 2 units QHS NEL Administration Protocol Isosorbide Mononitrate 60 mg 09/23/18 10:00 09/25/18 11:41 Imdur PO 60 mg QDAY NEL Administration Linagliptin 5 mg 09/23/18 12:00 09/25/18 09:15 Tradjenta PO 5 mg QDAY NEL Administration Loratadine 10 mg 09/24/18 10:00 09/25/18 11:42 Claritin PO 10 mg DAILY NEL Administration Metformin HCl 500 mg 09/23/18 17:00 09/25/18 11:41 Glucophage PO 500 mg BIDDIAB NEL Administration Metoprolol Tartrate 50 mg 09/24/18 14:00 09/26/18 05:52 Lopressor PO 50 mg Q8HR NEL Administration Montelukast Sodium 10 mg 09/23/18 22:00 09/25/18 21:52 Singulair PO 10 mg QHS NEL Administration Nifedipine 60 mg 09/25/18 12:00 09/25/18 21:51 Procardia Xl PO 60 mg Q12HR NEL Administration Nitroglycerin 0.4 mg 09/24/18 16:27 Nitrostat SL Q5MIN PRN Chest Pain Ondansetron HCl 4 mg 09/23/18 01:21 Zofran IV Q8H PRN Nausea And Vomiting Oxycodone/Acetaminophen 2 tab 09/25/18 11:48 09/26/18 05:53 Percocet 5/325 PO 2 tab Q4H PRN Administration Pain, Moderate (4-6) Pantoprazole Sodium 20 mg 09/24/18 10:00 09/25/18 11:42 Protonix PO 20 mg QDAY NEL Administration Polyethylene Glycol 17 gm 09/25/18 15:00 09/25/18 17:11 Miralax 3350 PO 17 gm QDAY NEL Administration Prednisone 40 mg 09/25/18 12:00 09/25/18 11:51 Deltasone PO 40 mg QDAY NEL Administration Ranolazine 500 mg 09/23/18 10:00 09/25/18 21:52 Ranexa Er PO 500 mg BID NEL Administration Senna/Docusate Sodium 2 tab 09/25/18 14:31 Senokot S PO Q12H PRN Laxative Effect Sodium Chloride 1 spray 09/25/18 18:00 09/25/18 21:52 Deep Sea NS 1 spray QID NEL Administration Tiotropium [place] 1 puff 09/23/18 12:00 09/26/18 08:07 Spiriva IH 1 puff Q24HRT NEL Administration
[2018-09-26] MEDS: BUSPAR PO SCH (10:13)
[2018-09-26] MEDS: RANEXA ER PO SCH ×2 (10:14→21:55)
[2018-09-26] MEDS: CYMBALTA PO SCH (10:14)
[2018-09-26] MEDS: HALFPRIN EC PO SCH (10:15)
[2018-09-26] MEDS: DELTASONE PO SCH (10:15)
[2018-09-26] MEDS: DEEP SEA NS SCH ×4 (10:19→21:56)
[2018-09-26] MEDS: BENADRYL PO PRN (10:37)
[2018-09-26] MEDS: MIRALAX 3350 PO SCH (10:37)
[2018-09-26] MEDS: IMDUR PO SCH (11:00)
--- NOTE | 2018-09-26 11:04 | Progress Note ---
Assessment and Plan The patient's cardiac status is improved. Continue Hydralazine, Lasix, beta mindy, aspirin, Eliquis and anti-ischemic therapy. Will hold on ACEi/ARB d/t renal insufficiency. The patient has been seen in conjunction with Dr. Larson, who agrees with the assessment and plan. Subjective Date of service: 09/26/18 Principal diagnosis: afib and sob Interval history: Patient lying in bed in NAD. Still anxious and c/o left-sided chest pain. SR with BBB in 80s on telemetry. Objective Vital Signs Last Vital Signs Temp 98.5 F 09/26/18 08:43 Pulse 82 09/26/18 08:43 Resp 18 09/26/18 08:43 BP 112/56 09/26/18 08:43 Pulse Ox 86 09/26/18 08:43 - Physical Examination General: No Apparent Distress HEENT: Positive: PERRL, EOMI Neck: Positive: neck supple, JVD/HJR Cardiac: Positive: Reg Rate and Rhythm Lungs: Positive: clear to auscultation Neuro: Positive: Grossly Intact Abdomen: Positive: Soft Skin: Positive: Clear Musculoskeletal: other (c/o chronic back pain) Extremities: Present: normal - Labs and Meds Comprehensive Metabolic Panel 09/26/18 Range/Units 04:08 Sodium 137 (137-145) mmol/L Potassium 4.9 (3.6-5.0) mmol/L Chloride 101.3 (98-107) mmol/L Carbon Dioxide 23 (22-30) mmol/L BUN 49 H (7-17) mg/dL Creatinine 1.6 H (0.7-1.2) mg/dL Glucose 263 H (65-100) mg/dL Calcium 8.4 (8.4-10.2) mg/dL - Imaging and Cardiology Echo: report reviewed (04/2017 normal LV function functioning bioprosthetic mitral valve), other (09/23/2018 moderate LV dysfunction EF 35to40% with functioning bioprosthetic mitral valve) Cardiac cath: report reviewed (05/2017 revealed occluded bypass grafts with a patent WILCOX to LAD and left main distal 50% circumflex small caliber 80-90% distally and RCA 100% with extensive [id number] collaterals but normal LV function) - Telemetry EKG Rhythm: Sinus Rhythm (BBB)
--- NOTE | 2018-09-26 12:03 | Progress Note ---
Assessment and Plan Assessment and plan: Patient is a 68-year-old woman with a history of diabetes mellitus type 2, GERD, arthritis, COPD, hypertension, AMI, coronary arterial disease with four-vessel bypass in 1997 last year his cardiac cath revealed occluded bypass grafts with a patent WILCOX to LAD and left main distal 50% circumflex small caliber 80-90% distally and RCA 100% with extensive [id number] collaterals but normal LV function. Patient did not follow-up with [facility] for possible OPERATIONS PLANNER of RCA. Patient has valvular heart disease with a bioprosthetic mitral valve placed in 2009 that was functioning on echo done last year in office who presents to the hospital with palpitations 2 weeks. She was seen by her music education director Dr. Deniz Mirza and sent to the hospital. She was found to be in AFib with RVR and CHF as well as COPD exacerbation, hence admission to the hospital New-onset p. atrial fibrillation with RVR and hypercoagulable state Medications per cardiology, reculture medications optimize her music education director, discussed reduction and dietary On eliquis for Anticoagulation/stroke prophylaxis Acute on chronic diastolic heart failure, poa as pt cxr showed p. edema and proBNP was 2558 currently she is on lasix twice a day instead of home dose of once a day Acute COPD exacerbation Steroids nebs Chronic osteoarthritis with back pain Continue pain medications Pain medication seeking behavior Patient has been counseled about the risks of taking narcotics [id number], she verbalized understanding Preventative health counseling performed for 17 minutes Hypertensive urgency Optimize blood pressure medications Acute kidney injury/vasomotor nephropathy Creatinine has started to come down but not at baseline, we'll add IV fluids, and nephrology consult. Have stopped NSAID and YOUNG inhibitor Bioprosthetic mitral valve Cardiology is following Tobacco dependency Design Supervisor on stopping DVT prophylaxis Patient fully a/c on Eliquis Disposition: continue inpatient care, Cr was 1.0-->1.9 now back down to 1.6,discharge once creatinine closer to baseline, hopefully tomorrow. History Interval history: Patient was seen and examined. Follow-up on current diagnosis afib, chf. No overnight events reported to me. Patient denies any chest pain, shortness breath, nausea/vomiting or severe headaches. Imaging, nursing note, chart, labs and old chart reviewed. Discussed with patient. Hospitalist Physical - Physical exam Narrative exam: Gen: WDWN, NAD, Awake, Alert, Orientated x 3 HEENT: NCAT, EOMI, PERRL, OP Clear Neck: supple, no adenopathy, no thyromegaly, no JVD CVS/Heart: RRR, normal S1S2, pulses present bilaterally Chest/Lungs: diminished with mild ex wheezing, Symmetrical chest expansion, good air entry bilaterally GI/Abdomen: soft, NTND, good bowel sounds, no guarding or rebound /Bladder: no suprapubic tenderness, no CVA or paraspinal tenderness Extermity/Skin: no c/c/e, no obvious rash MSK: FROM x 4 Neuro: CN 2-12 grossly intact, no new focal deficits Psych: calm - Constitutional Vitals: Temp Pulse Resp BP Pulse Ox 98.5 F 82 18 112/56 86 09/26/18 08:43 09/26/18 08:43 09/26/18 08:43 09/26/18 08:43 09/26/18 08:43 General appearance: Present: no acute distress Results - Labs CBC & Chem 7: 09/25/18 04:52 09/26/18 04:08 Labs: Laboratory Last Values WBC 9.7 K/mm3 (4.5-11.0) 09/22/18 18:18 RBC 3.95 M/mm3 (3.65-5.03) 09/22/18 18:18 Hgb 12.6 gm/dl (10.1-14.3) 09/25/18 04:52 Hct 38.6 % (30.3-42.9) 09/25/18 04:52 MCV 95 fl (79-97) 09/22/18 18:18 MCH 32 pg (28-32) 09/22/18 18:18 MCHC 33 % (30-34) 09/22/18 18:18 RDW 14.0 % (13.2-15.2) 09/22/18 18:18 Plt Count 233 K/mm3 (140-440) 09/25/18 04:52 Lymph % (Auto) 18.9 % (13.4-35.0) 09/22/18 18:18 [place] % (Auto) 12.0 % (0.0-7.3) H 09/22/18 18:18 Eos % (Auto) 1.7 % (0.0-4.3) 09/22/18 18:18 Baso % (Auto) 0.9 % (0.0-1.8) 09/22/18 18:18 Lymph # 1.8 K/mm3 (1.2-5.4) 09/22/18 18:18 [place] # 1.2 K/mm3 (0.0-0.8) H 09/22/18 18:18 Eos # 0.2 K/mm3 (0.0-0.4) 09/22/18 18:18 Baso # 0.1 K/mm3 (0.0-0.1) 09/22/18 18:18 Seg Neutrophils % 66.5 % (40.0-70.0) 09/22/18 18:18 Seg Neutrophils # 6.4 K/mm3 (1.8-7.7) 09/22/18 18:18 PT 13.9 Sec. (12.2-14.9) 09/23/18 01:34 INR 1.10 (0.87-1.13) 09/23/18 01:34 APTT 32.9 Sec. (24.2-36.6) 09/23/18 01:34 Heparin Anti-Xa Level 0.53 U.I./ml (0.3-0.7) 09/23/18 09:30 Sodium 137 mmol/L (137-145) 09/26/18 04:08 Potassium 4.9 mmol/L (3.6-5.0) 09/26/18 04:08 Chloride 101.3 mmol/L (98-107) 09/26/18 04:08 Carbon Dioxide 23 mmol/L (22-30) 09/26/18 04:08 18 mmol/L 09/26/18 04:08 BUN 49 mg/dL (7-17) H 09/26/18 04:08 1.6 mg/dL (0.7-1.2) H 09/26/18 04:08 Estimated GFR 39 ml/min 09/26/18 04:08 31 % 09/26/18 04:08 Glucose 263 mg/dL (65-100) H 09/26/18 04:08 POC Glucose 220 (70-105) H 09/25/18 20:33 Calcium 8.4 mg/dL (8.4-10.2) 09/26/18 04:08 0.20 mg/dL (0.1-1.2) 09/25/18 04:52 AST 12 units/L (5-40) 09/25/18 04:52 ALT 16 units/L (7-56) 09/25/18 04:52 169 units/L (35-129) H 09/25/18 04:52 75 units/L (30-135) 09/23/18 14:57 CK-MB (CK-2) 1.9 ng/mL (0.0-4.0) 09/23/18 14:57 CK-MB (CK-2) Rel Index 2.5 (0-4) 09/23/18 14:57 < 0.010 ng/mL (0.00-0.029) 09/23/18 14:57 NT-Pro-B Natriuret Pep 2558 pg/mL (0-900) H 09/22/18 18:18 7.7 g/dL (6.3-8.2) 09/25/18 04:52 3.7 g/dL (3.9-5) L 09/25/18 04:52 0.9 % 09/25/18 04:52 Yellow (Yellow) 09/25/18 10:38 Slightly-cloudy (Clear) 09/25/18 10:38 5.0 (5.0-7.0) 09/25/18 10:38 Ur Specific [place] 1.020 (1.003-1.030) 09/25/18 10:38 <15 mg/dl mg/dL (Negative) 09/25/18 10:38 50 mg/dL (Negative) 09/25/18 10:38 Neg mg/dL (Negative) 09/25/18 10:38 Neg (Negative) 09/25/18 10:38 Neg (Negative) 09/25/18 10:38 Neg (Negative) 09/25/18 10:38 < 2.0 mg/dL (<2.0) 09/25/18 10:38 Ur Leukocyte Esterase Neg (Negative) 09/25/18 10:38 2.0 /HPF (0.0-6.0) 09/25/18 10:38 3.0 /HPF (0.0-6.0) 09/25/18 10:38 U Epithel Cells (Auto) 5.0 /HPF (0-13.0) 09/25/18 10:38 Few /HPF 09/25/18 10:38 Few /HPF 09/25/18 10:38 138.8 mg/dL (0.1-20.0) H 09/25/18 10:38 65 mmol/L 09/25/18 10:38 27 mg/dL (5-11.8) H 09/25/18 10:38 Active Medications - Current Medications Current Medications: Generic Name Dose Route Start Last Admin Trade Name Freq PRN Reason Stop Dose Admin Acetaminophen 650 mg 09/23/18 01:20 Tylenol PO Q4H PRN Headache Albuterol 2.5 mg 09/23/18 11:19 Proventil IH TID PRN Wheezing Albuterol/Ipratropium 1 ampul 09/23/18 14:00 09/26/18 08:07 Duoneb *Not For Prn Use* IH 1 ampul Q6HRT NEL Administration Apixaban 5 mg 09/23/18 10:00 09/25/18 21:51 Eliquis PO 5 mg Q12HR NEL Administration Protocol Aspirin 81 mg 09/23/18 12:00 09/26/18 10:15 Halfprin Ec PO 81 mg DAILY NEL Administration Budesonide 0.5 mg 09/23/18 20:00 09/26/18 08:07 Pulmicort IH 0.5 mg Q12HRT NEL Administration Buspirone HCl 5 mg 09/23/18 10:00 09/26/18 10:13 Buspar PO 5 mg DAILY NEL Administration Dextrose 50 ml 09/23/18 11:29 D50w (25gm) Syringe IV PRN PRN Hypoglycemia Diphenhydramine HCl 25 mg 09/25/18 11:47 09/26/18 10:37 Benadryl PO 25 mg Q6H PRN Administration allergies Duloxetine HCl 60 mg 09/23/18 13:00 09/26/18 10:14 Cymbalta PO 60 mg QDAY NEL Administration Fluticasone Propionate 100 mcg 09/23/18 12:00 09/25/18 10:00 Flonase NS Not Given DAILY NEL Furosemide 40 mg 09/25/18 18:00 09/26/18 05:52 Lasix PO 40 mg BID@0600,1800 NEL Administration Hydralazine HCl 25 mg 09/25/18 14:00 09/26/18 05:53 Apresoline PO 25 mg Q8HR NEL Administration Hydralazine HCl 10 mg 09/25/18 11:26 Apresoline IV Q4HR PRN BP >160/100 Insulin Glargine 10 units 09/23/18 22:00 09/25/18 21:53 Lantus SUB-Q 10 units QHS NEL Administration Insulin Human Lispro 0 unit 09/23/18 11:30 09/26/18 09:21 Humalog SUB-Q 3 unit AC [facility] Administration Protocol Insulin Human Regular 0 units 09/23/18 22:00 09/25/18 21:54 Humulin R SUB-Q 2 units QHS [facility] Administration Protocol Isosorbide Mononitrate 60 mg 09/23/18 10:00 09/25/18 11:41 Imdur PO 60 mg QDAY NEL Administration Linagliptin 5 mg 09/23/18 12:00 09/25/18 09:15 Tradjenta PO 5 mg QDAY NEL Administration Loratadine 10 mg 09/24/18 10:00 09/25/18 11:42 Claritin PO 10 mg DAILY NEL Administration Metformin HCl 500 mg 09/23/18 17:00 09/25/18 11:41 Glucophage PO 500 mg BIDDIAB NEL Administration Metoprolol Tartrate 50 mg 09/24/18 14:00 09/26/18 05:52 Lopressor PO 50 mg Q8HR NEL Administration Montelukast Sodium 10 mg 09/23/18 22:00 09/25/18 21:52 Singulair PO 10 mg QHS NEL Administration Nifedipine 60 mg 09/25/18 12:00 09/25/18 21:51 Procardia Xl PO 60 mg Q12HR NEL Administration Nitroglycerin 0.4 mg 09/24/18 16:27 Nitrostat SL Q5MIN PRN Chest Pain Ondansetron HCl 4 mg 09/23/18 01:21 Zofran IV Q8H PRN Nausea And Vomiting Oxycodone/Acetaminophen 2 tab 09/25/18 11:48 09/26/18 10:36 Percocet 5/325 PO 2 tab Q4H PRN Administration Pain, Moderate (4-6) Pantoprazole Sodium 20 mg 09/24/18 10:00 09/25/18 11:42 Protonix PO 20 mg QDAY NEL Administration Polyethylene Glycol 17 gm 09/25/18 15:00 09/26/18 10:37 Miralax 3350 PO 17 gm QDAY NEL Administration Prednisone 40 mg 09/25/18 12:00 09/26/18 10:15 Deltasone PO 40 mg QDAY NEL Administration Ranolazine 500 mg 09/23/18 10:00 09/26/18 10:14 Ranexa Er PO 500 mg BID NEL Administration Senna/Docusate Sodium 2 tab 09/25/18 14:31 Senokot S PO Q12H PRN Laxative Effect Sodium Chloride 1 spray 09/25/18 18:00 09/26/18 10:19 [place] NS 1 spray QID NEL Administration Tiotropium [place] 1 puff 09/23/18 12:00 09/26/18 08:07 Spiriva IH 1 puff Q24HRT NEL Administration Nutrition/Malnutrition Assess - Dietary Evaluation Nutrition/Malnutrition Findings: Nutrition Notes Start: 09/23/18 11:14 Freq: Status: Active Protocol: Document 09/24/18 09:39 LP (Rec: 09/24/18 09:40 LP [email or web address]) Nutrition Notes Initial or Follow up Brief Note Subjective/Other Information Consult for diet education. Pt states denies need for diet education. Pt eating well now. Consumed 100% of breakfast this AM. Nutrition Intervention Follow-Up By: 09/27/18 Additional Comments Follow for stable intakes.
[2018-09-26] MEDS: CLARITIN PO SCH (12:07)
[2018-09-26] MEDS: ELIQUIS PO SCH ×2 (12:07→21:56)
[2018-09-26] MEDS: PROTONIX PO SCH (12:09)
[2018-09-26] MEDS: TRADJENTA PO SCH (12:10)
[2018-09-26] MEDS: PROCARDIA XL PO SCH ×2 (13:16→21:56)
[2018-09-26] MEDS: FLONASE NS SCH (17:09)
[2018-09-26] MEDS: SINGULAIR PO SCH (21:56)
[2018-09-26] MEDS: LANTUS SUB-Q SCH (21:57)
[2018-09-26] MEDS: HumuLIN R SUB-Q SCH (21:58)
[2018-09-27] MEDS: DUONEB *Not for PRN Use IH SCH ×4 (01:18→20:30)
[2018-09-27] MEDS: PERCOCET 5/325 PO PRN ×5 (04:03→21:57)
[2018-09-27] MEDS: LASIX PO SCH ×2 (05:55→17:31)
[2018-09-27] MEDS: APRESOLINE PO SCH ×3 (05:55→21:59)
[2018-09-27] MEDS: LOPRESSOR PO SCH ×3 (05:56→21:58)
[2018-09-27 06:11] LABS: Hematocrit 42.8 % (30.3-42.9); Hemoglobin 13.9 gm/dl (10.1-14.3); Mean Corpuscular HGB Conc 33 % (30-34); Mean Corpuscular Volume 96 fl (79-97); Platelet Count 234 K/mm3 (140-440); Red Blood Count 4.46 M/mm3 (3.65-5.03); Red Cell Distribution Width 14.4 % (13.2-15.2)
[2018-09-27 06:31] LABS: Calcium 8.7 mg/dL (8.4-10.2)
[2018-09-27] MEDS: PULMICORT IH SCH ×2 (07:31→20:30)
[2018-09-27] MEDS: HumaLOG SUB-Q SCH ×3 (08:40→17:32)
[2018-09-27] MEDS: SPIRIVA IH SCH (09:12)
[2018-09-27] MEDS: CLARITIN PO SCH (09:29)
[2018-09-27] MEDS: CYMBALTA PO SCH (09:29)
[2018-09-27] MEDS: RANEXA ER PO SCH ×2 (09:30→21:58)
[2018-09-27] MEDS: PROTONIX PO SCH (09:30)
[2018-09-27] MEDS: DELTASONE PO SCH (09:30)
[2018-09-27] MEDS: HALFPRIN EC PO SCH (09:30)
[2018-09-27] MEDS: ELIQUIS PO SCH ×2 (09:30→21:59)
[2018-09-27] MEDS: TRADJENTA PO SCH (09:31)
[2018-09-27] MEDS: BUSPAR PO SCH (09:31)
[2018-09-27] MEDS: IMDUR PO SCH (09:31)
[2018-09-27] MEDS: PROCARDIA XL PO SCH ×2 (09:32→21:59)
[2018-09-27] MEDS: MIRALAX 3350 PO SCH (09:32)
[2018-09-27] MEDS: FLONASE NS SCH (09:33)
[2018-09-27] MEDS: DEEP SEA NS SCH ×4 (09:34→21:59)
--- NOTE | 2018-09-27 10:16 | Progress Note ---
Assessment and Plan We will obtain a nuclear stress test in light of the patient's persistent chest pain. Continue anti-ischemic therapy, beta mindy, ASA and Eliquis. Will hold ACEi/ARB for now d/t renal insufficiency. The patient has been seen in conjunction with Dr. Larson, who agrees with assessment and plan. - Patient Problems (1) Acute kidney injury Current Visit: Yes Status: Acute (2) Atrial fibrillation with RVR Current Visit: Yes Status: Resolved (3) Type 2 diabetes mellitus with diabetic chronic kidney disease Current Visit: Yes Status: Chronic (4) CAD (coronary artery disease) Current Visit: No Status: Chronic (5) Ischemic cardiomyopathy Current Visit: Yes Status: Chronic Subjective Date of service: 09/27/18 Principal diagnosis: afib and sob Interval history: Patient lying in bed in NAD. Still c/o chest pain with movement and deep breathing. SR in 80s with intermittent rate-controlled atrial fibrillation on telemetry. Objective Last Vital Signs Temp 97.9 F 09/27/18 07:26 Pulse 65 09/27/18 09:31 Resp 17 09/27/18 07:32 BP 130/49 09/27/18 09:31 Pulse Ox 97 09/27/18 07:26 - Physical Examination General: No Apparent Distress HEENT: Positive: PERRL, EOMI Neck: Positive: neck supple, JVD/HJR Cardiac: Positive: Reg Rate and Rhythm Lungs: Positive: clear to auscultation Neuro: Positive: Grossly Intact Abdomen: Positive: Soft Skin: Positive: Clear Musculoskeletal: other (c/o chronic back pain) Extremities: Present: normal - Labs and Meds CBC 09/27/18 Range/Units 05:06 WBC 16.6 H (4.5-11.0) K/mm3 RBC 4.46 (3.65-5.03) M/mm3 Hgb 13.9 (10.1-14.3) gm/dl Hct 42.8 (30.3-42.9) % Plt Count 234 (140-440) K/mm3 Comprehensive Metabolic Panel 09/27/18 Range/Units 05:06 Sodium 139 (137-145) mmol/L Potassium 4.6 (3.6-5.0) mmol/L Chloride 100.2 (98-107) mmol/L Carbon Dioxide 24 (22-30) mmol/L BUN 48 H (7-17) mg/dL Creatinine 1.6 H (0.7-1.2) mg/dL Glucose 187 H (65-100) mg/dL Calcium 8.7 (8.4-10.2) mg/dL - Imaging and Cardiology Echo: report reviewed (04/2017 normal LV function functioning bioprosthetic mitral valve), other (09/23/2018 moderate LV dysfunction EF 35to40% with functioning bioprosthetic mitral valve) Cardiac cath: report reviewed (05/2017 revealed occluded bypass grafts with a patent WILCOX to LAD and left main distal 50% circumflex small caliber 80-90% distally and RCA 100% with extensive [id number] collaterals but normal LV function) - EKG Sinus rhythms and dysrhythmias: sinus rhythm
--- NOTE | 2018-09-27 10:51 | Progress Note ---
Assessment and Plan - Patient Problems (1) Acute kidney injury Current Visit: Yes Status: Acute Plan to address problem: Suspect LULU secondary to acute cardiorenal syndrome in the setting of acute A- fib with RVR, acute on chronic systolic HF. Recommend to hold IV NS, and lisinopril given also development of mild hyperkalemia. Cont lasix to 40mg po bi d to target net negative fluid balance. UA showed no evidence of hematuria/proteinuria to suggest acute glomerular injury. stable renal function. Avoid nephrotoxins, NSAIDs, IV contrast. Further management depending on patient's clinical course (2) Hyperkalemia Current Visit: Yes Status: Acute Plan to address problem: resolved. cont 2g K renal diet (3) Type 2 diabetes mellitus with diabetic chronic kidney disease Current Visit: Yes Status: Chronic Plan to address problem: glucose control as per primary attending (4) Atrial fibrillation with RVR Current Visit: Yes Status: Resolved Plan to address problem: rate control/anticoagulation as per cardiology (5) CAD (coronary artery disease) Current Visit: No Status: Chronic Plan to address problem: awaiting stress test (6) History of mitral valve replacement with bioprosthetic valve Current Visit: No Status: Chronic (7) Hypertensive chronic kidney disease with stage 1 through stage 4 chronic kidney disease, or unspecified chronic kidney disease Current Visit: Yes Status: Acute Plan to address problem: BP controlled, monitor on current meds Subjective Date of service: 09/27/18 Principal diagnosis: afib and sob Interval history: Patient awake, alert, in no acute respiratory distress. still c/o midsternal chest tightness Objective - Vital Signs Vital signs: Vital Signs - 12hr 09/26/18 09/26/18 09/27/18 22:58 23:52 01:19 Temperature 98.1 F Pulse Rate 90 Pulse Rate [ 89 Anterior Bilateral Throughout] Respiratory 18 20 Rate Respiratory 19 Rate [Anterior Bilateral Throughout] Blood Pressure 140/63 O2 Sat by Pulse 90 Oximetry 09/27/18 09/27/18 09/27/18 03:43 04:03 05:03 Temperature 98.2 F Pulse Rate 91 H Pulse Rate [ Anterior Bilateral Throughout] Respiratory 18 20 20 Rate Respiratory Rate [Anterior Bilateral Throughout] Blood Pressure 146/69 O2 Sat by Pulse 97 Oximetry 09/27/18 09/27/18 09/27/18 05:55 05:56 07:26 Temperature 97.9 F Pulse Rate 90 90 65 Pulse Rate [ Anterior Bilateral Throughout] Respiratory 20 Rate Respiratory Rate [Anterior Bilateral Throughout] Blood Pressure 146/69 146/69 130/49 O2 Sat by Pulse 97 Oximetry 09/27/18 09/27/18 07:32 09:31 Temperature Pulse Rate 65 Pulse Rate [ 85 Anterior Bilateral Throughout] Respiratory Rate Respiratory 17 Rate [Anterior Bilateral Throughout] Blood Pressure 130/49 O2 Sat by Pulse Oximetry - General Appearance General appearance: well-developed, well-nourished, appears stated age, obese EENT: ATNC, PERRL, mucous membranes moist Neck: no JVD Respiratory: Present: Clear to Ascultation Cardiology: regular, S1S2 Gastrointestinal: normoactive bowel sounds Integumentary: no rash, other (no edema ) Neurologic: no focal deficit, alert and oriented x3, strength 5/5, CN 3-12 in tact Psychiatric: mood/affect appropriate, cooperative - Lab 09/27/18 05:06 09/27/18 05:06 Most recent lab results Calcium 8.7 mg/dL (8.4-10.2) 09/27/18 05:06 Magnesium 1.90 mg/dL (1.7-2.3) 09/27/18 05:06 138.8 mg/dL (0.1-20.0) H 09/25/18 10:38 65 mmol/L 09/25/18 10:38 27 mg/dL (5-11.8) H 09/25/18 10:38 Medications & Allergies - Medications Allergies/Adverse Reactions: Allergies No Known Allergies Allergy (Unverified 05/19/17 07:38) Home Medications: Home Medications Medication Instructions Recorded Confirmed Last Taken Type ALBUTEROL NEB's [Proventil] 2.5 mg IH TID PRN 05/19/17 09/22/18 1 Week Ago History ~05/12/17 Aspirin [Aspirin EC] 81 mg PO DAILY 05/19/17 09/22/18 05/18/17 History Carvedilol [Coreg] 12.5 mg PO BID 05/19/17 09/22/18 05/18/17 History Duloxetine HCl [DULoxetine] 60 mg PO DAILY 05/19/17 09/22/18 05/18/17 History Fluticasone Propionate [Flovent 2 puff INHALATION BID 05/19/17 09/22/18 05/17/17 History 110 MCG/PUFF HFA] Fluticasone [Flonase] 1 inh INNOSTRIL DAILY 05/19/17 09/22/18 1 Week Ago History ~05/12/17 Furosemide [Lasix TAB] 40 mg PO DAILY 05/19/17 09/22/18 05/18/17 History ISOSORBIDE MONOnitrate [Imdur ER] 60 mg PO QDAY 05/19/17 09/22/18 05/18/17 History Insulin Glargine,Hum.rec.anlog 10 unit PO DAILY 05/19/17 09/22/18 05/18/17 History [Lantus Solostar] Loratadine 10 mg PO DAILY 05/19/17 09/22/18 05/17/17 History Meloxicam 15 mg PO DAILY 05/19/17 09/22/18 05/18/17 History Metformin HCl 500 mg PO BID 05/19/17 09/22/18 1 Week Ago History ~05/12/17 Montelukast [Singulair] 10 mg PO QPM 05/19/17 09/22/18 05/18/17 History Nitroglycerin 0.4 mg SL Q5MIN PRN 05/19/17 09/22/18 05/14/17 History Omeprazole 20 mg PO DAILY 05/19/17 09/22/18 05/18/17 History Ramipril 5 mg PO DAILY 05/19/17 09/22/18 05/18/17 History Ranolazine [Ranexa] 500 mg PO BID #60 tab.er.12h 05/19/17 09/22/18 Unknown Rx Saxagliptin HCl [Onglyza] 5 mg PO DAILY 05/19/17 09/22/18 05/18/17 History Tiotropium [place] [Spiriva] 18 mcg IH DAILY 05/19/17 09/22/18 05/16/17 History Zolpidem [Ambien] 10 mg PO QHS 05/19/17 09/22/18 4 Months Ago History ~01/18/17 busPIRone [Buspar] 5 mg PO DAILY 05/19/17 09/22/18 05/18/17 History oxyCODONE /ACETAMINOPHEN [Percocet 1 tab PO Q6HR PRN 05/19/17 09/22/18 05/19/17 History 5/325 mg] Active Medications: Generic Name Dose Route Start Last Admin Trade Name Freq PRN Reason Stop Dose Admin Acetaminophen 650 mg 09/23/18 01:20 Tylenol PO Q4H PRN Headache Albuterol 2.5 mg 09/23/18 11:19 Proventil IH TID PRN Wheezing Albuterol/Ipratropium 1 ampul 09/23/18 14:00 09/27/18 07:32 Duoneb *Not For Prn Use* IH 1 ampul Q6HRT NEL Administration Apixaban 5 mg 09/23/18 10:00 09/27/18 09:30 Eliquis PO 5 mg Q12HR NEL Administration Protocol Aspirin 81 mg 09/23/18 12:00 09/27/18 09:30 Halfprin Ec PO 81 mg DAILY NEL Administration Budesonide 0.5 mg 09/23/18 20:00 09/27/18 07:31 Pulmicort IH 0.5 mg Q12HRT NEL Administration Buspirone HCl 5 mg 09/23/18 10:00 09/27/18 09:31 Buspar PO 5 mg DAILY NEL Administration Dextrose 50 ml 09/23/18 11:29 D50w (25gm) Syringe IV PRN PRN Hypoglycemia Diphenhydramine HCl 25 mg 09/25/18 11:47 09/26/18 10:37 Benadryl PO 25 mg Q6H PRN Administration allergies Duloxetine HCl 60 mg 09/23/18 13:00 09/27/18 09:29 Cymbalta PO 60 mg QDAY NEL Administration Fluticasone Propionate 100 mcg 09/23/18 12:00 09/27/18 09:33 Flonase NS 100 mcg DAILY NEL Administration Furosemide 40 mg 09/25/18 18:00 09/27/18 05:55 Lasix PO 40 mg BID@0600,1800 NEL Administration Hydralazine HCl 25 mg 09/25/18 14:00 09/27/18 05:55 Apresoline PO 25 mg Q8HR NEL Administration Hydralazine HCl 10 mg 09/25/18 11:26 Apresoline IV Q4HR PRN BP >160/100 Insulin Glargine 10 units 09/23/18 22:00 09/26/18 21:57 Lantus SUB-Q 10 units QHS NEL Administration Insulin Human Lispro 0 unit 09/23/18 11:30 09/27/18 08:40 Humalog SUB-Q 2 unit AC NEL Administration Protocol Insulin Human Regular 0 units 09/23/18 22:00 09/26/18 21:58 Humulin R SUB-Q 4 units QHS NEL Administration Protocol Isosorbide Mononitrate 60 mg 09/23/18 10:00 09/27/18 09:31 Imdur PO 60 mg QDAY NEL Administration Linagliptin 5 mg 09/23/18 12:00 09/27/18 09:31 Tradjenta PO 5 mg QDAY ENL Administration Loratadine 10 mg 09/24/18 10:00 09/27/18 09:29 Claritin PO 10 mg DAILY NEL Administration Metformin HCl 500 mg 09/23/18 17:00 09/25/18 11:41 Glucophage PO 500 mg BIDDIAB NEL Administration Metoprolol Tartrate 50 mg 09/24/18 14:00 09/27/18 05:56 Lopressor PO 50 mg Q8HR NEL Administration Montelukast Sodium 10 mg 09/23/18 22:00 09/26/18 21:56 Singulair PO 10 mg QHS NEL Administration Nifedipine 60 mg 09/25/18 12:00 09/27/18 09:32 Procardia Xl PO 60 mg Q12HR NEL Administration Nitroglycerin 0.4 mg 09/24/18 16:27 Nitrostat SL Q5MIN PRN Chest Pain Ondansetron HCl 4 mg 09/23/18 01:21 Zofran IV Q8H PRN Nausea And Vomiting Oxycodone/Acetaminophen 2 tab 09/25/18 11:48 09/27/18 08:40 Percocet 5/325 PO 2 tab Q4H PRN Administration Pain, Moderate (4-6) Pantoprazole Sodium 20 mg 09/24/18 10:00 09/27/18 09:30 Protonix PO 20 mg QDAY NEL Administration Polyethylene Glycol 17 gm 09/25/18 15:00 09/27/18 09:32 Miralax 3350 PO 17 gm QDAY NEL Administration Prednisone 40 mg 09/25/18 12:00 09/27/18 09:30 Deltasone PO 40 mg QDAY NEL Administration Ranolazine 500 mg 09/23/18 10:00 09/27/18 09:30 Ranexa Er PO 500 mg BID NEL Administration Senna/Docusate Sodium 2 tab 09/25/18 14:31 Senokot S PO Q12H PRN Laxative Effect Sodium Chloride 1 spray 09/25/18 18:00 09/27/18 09:34 Deep Sea NS 1 spray QID NEL Administration Tiotropium Kinder 1 puff 09/23/18 12:00 09/27/18 09:12 Spiriva IH 1 puff Q24HRT NEL Administration
[2018-09-27] MEDS: SINGULAIR PO SCH (21:58)
[2018-09-27] MEDS: HumuLIN R SUB-Q SCH (22:00)
[2018-09-27] MEDS: LANTUS SUB-Q SCH (22:00)
--- NOTE | 2018-09-27 22:35 | Progress Note ---
Assessment and Plan Assessment and plan: Patient is a 68-year-old woman with a history of diabetes mellitus type 2, GERD, arthritis, COPD, hypertension, AMI, coronary arterial disease with four-vessel bypass in 1997 last year his cardiac cath revealed occluded bypass grafts with a patent WILCOX to LAD and left main distal 50% circumflex small caliber 80-90% distally and RCA 100% with extensive [id number] collaterals but normal LV function. 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 Patient has valvular heart disease with a bioprosthetic mitral valve placed in 2009 that was functioning on echo done last year in office who presents to the hospital with palpitations 2 weeks. She was seen by her shelter director Dr. Deniz Mirza and sent to the hospital. She was found to be in AFib with RVR and CHF as well as COPD exacerbation, hence admission to the hospital New-onset p. atrial fibrillation with RVR and hypercoagulable state Medications per cardiology, reculture medications optimize her shelter director, discussed reduction and dietary On eliquis for Anticoagulation/stroke prophylaxis Acute on chronic diastolic heart failure, poa as pt cxr showed p. edema and proBNP was 2558 currently she is on lasix twice a day instead of home dose of once a day Acute COPD exacerbation Steroids nebs Leukocytosis on steroids repeat cbc Chronic osteoarthritis with back pain Continue pain medications Pain medication seeking behavior Patient has been counseled about the risks of taking narcotics [id number], she verbalized understanding Preventative health counseling performed for 17 minutes Hypertensive urgency Optimize blood pressure medications Acute kidney injury/vasomotor nephropathy Creatinine has started to come down but not at baseline, we'll add IV fluids, and nephrology consult. Have stopped NSAID and YOUNG inhibitor Bioprosthetic mitral valve Cardiology is following Tobacco dependency Anesthesiologist Assistant Certified on stopping DVT prophylaxis Patient fully a/c on Eliquis Disposition: continue inpatient care, Cr was 1.0-->1.9 now back down to 1.6,discharge once creatinine closer to baseline, . stress test tomorrow hopefully discharge if negative History Interval history: Patient was seen and examined. Follow-up on current diagnosis afib, chf. No overnight events reported to me. Patient denies any chest pain, shortness breath, nausea/vomiting or severe headaches. Imaging, nursing note, chart, labs and old chart reviewed. Discussed with patient. Hospitalist Physical - Physical exam Narrative exam: Gen: WDWN, NAD, Awake, Alert, Orientated x 3 HEENT: NCAT, EOMI, PERRL, OP Clear Neck: supple, no adenopathy, no thyromegaly, no JVD CVS/Heart: RRR, normal S1S2, pulses present bilaterally Chest/Lungs: diminished with mild ex wheezing, Symmetrical chest expansion, good air entry bilaterally GI/Abdomen: soft, NTND, good bowel sounds, no guarding or rebound /Bladder: no suprapubic tenderness, no CVA or paraspinal tenderness Extermity/Skin: no c/c/e, no obvious rash MSK: FROM x 4 Neuro: CN 2-12 grossly intact, no new focal deficits Psych: calm - Constitutional Vitals: Temp Pulse Resp BP Pulse Ox 98.3 F 104 H 20 131/71 87 09/27/18 19:18 09/27/18 21:59 09/27/18 21:57 09/27/18 21:59 09/27/18 19:18 General appearance: Present: no acute distress Results - Labs CBC & Chem 7: 09/27/18 05:06 09/27/18 05:06 Labs: Laboratory Last Values WBC 16.6 K/mm3 (4.5-11.0) H 09/27/18 05:06 RBC 4.46 M/mm3 (3.65-5.03) 09/27/18 05:06 Hgb 13.9 gm/dl (10.1-14.3) 09/27/18 05:06 Hct 42.8 % (30.3-42.9) 09/27/18 05:06 MCV 96 fl (79-97) 09/27/18 05:06 MCH 31 pg (28-32) 09/27/18 05:06 MCHC 33 % (30-34) 09/27/18 05:06 RDW 14.4 % (13.2-15.2) 09/27/18 05:06 Plt Count 234 K/mm3 (140-440) 09/27/18 05:06 Lymph % (Auto) 18.9 % (13.4-35.0) 09/22/18 18:18 [place] % (Auto) 12.0 % (0.0-7.3) H 09/22/18 18:18 Eos % (Auto) 1.7 % (0.0-4.3) 09/22/18 18:18 Baso % (Auto) 0.9 % (0.0-1.8) 09/22/18 18:18 Lymph # 1.8 K/mm3 (1.2-5.4) 09/22/18 18:18 Cooper # 1.2 K/mm3 (0.0-0.8) H 09/22/18 18:18 Eos # 0.2 K/mm3 (0.0-0.4) 09/22/18 18:18 Baso # 0.1 K/mm3 (0.0-0.1) 09/22/18 18:18 Seg Neutrophils % 66.5 % (40.0-70.0) 09/22/18 18:18 Seg Neutrophils # 6.4 K/mm3 (1.8-7.7) 09/22/18 18:18 PT 13.9 Sec. (12.2-14.9) 09/23/18 01:34 INR 1.10 (0.87-1.13) 09/23/18 01:34 APTT 32.9 Sec. (24.2-36.6) 09/23/18 01:34 Heparin Anti-Xa Level 0.53 U.I./ml (0.3-0.7) 09/23/18 09:30 Sodium 139 mmol/L (137-145) 09/27/18 05:06 Potassium 4.6 mmol/L (3.6-5.0) 09/27/18 05:06 Chloride 100.2 mmol/L (98-107) 09/27/18 05:06 Carbon Dioxide 24 mmol/L (22-30) 09/27/18 05:06 19 mmol/L 09/27/18 05:06 BUN 48 mg/dL (7-17) H 09/27/18 05:06 1.6 mg/dL (0.7-1.2) H 09/27/18 05:06 Estimated GFR 39 ml/min 09/27/18 05:06 30 % 09/27/18 05:06 Glucose 187 mg/dL (65-100) H 09/27/18 05:06 POC Glucose 315 (70-105) H 09/26/18 21:21 Calcium 8.7 mg/dL (8.4-10.2) 09/27/18 05:06 Magnesium 1.90 mg/dL (1.7-2.3) 09/27/18 05:06 0.20 mg/dL (0.1-1.2) 09/25/18 04:52 AST 12 units/L (5-40) 09/25/18 04:52 ALT 16 units/L (7-56) 09/25/18 04:52 169 units/L (35-129) H 09/25/18 04:52 75 units/L (30-135) 09/23/18 14:57 CK-MB (CK-2) 1.9 ng/mL (0.0-4.0) 09/23/18 14:57 CK-MB (CK-2) Rel Index 2.5 (0-4) 09/23/18 14:57 < 0.010 ng/mL (0.00-0.029) 09/23/18 14:57 NT-Pro-B Natriuret Pep 2558 pg/mL (0-900) H 09/22/18 18:18 7.7 g/dL (6.3-8.2) 09/25/18 04:52 3.7 g/dL (3.9-5) L 09/25/18 04:52 0.9 % 09/25/18 04:52 Yellow (Yellow) 09/25/18 10:38 Slightly-cloudy (Clear) 09/25/18 10:38 5.0 (5.0-7.0) 09/25/18 10:38 Ur Specific Henry 1.020 (1.003-1.030) 09/25/18 10:38 <15 mg/dl mg/dL (Negative) 09/25/18 10:38 50 mg/dL (Negative) 09/25/18 10:38 Neg mg/dL (Negative) 09/25/18 10:38 Neg (Negative) 09/25/18 10:38 Neg (Negative) 09/25/18 10:38 Neg (Negative) 09/25/18 10:38 < 2.0 mg/dL (<2.0) 09/25/18 10:38 Ur Leukocyte Esterase Neg (Negative) 09/25/18 10:38 2.0 /HPF (0.0-6.0) 09/25/18 10:38 3.0 /HPF (0.0-6.0) 09/25/18 10:38 U Epithel Cells (Auto) 5.0 /HPF (0-13.0) 09/25/18 10:38 Few /HPF 09/25/18 10:38 Few /HPF 09/25/18 10:38 138.8 mg/dL (0.1-20.0) H 09/25/18 10:38 65 mmol/L 09/25/18 10:38 27 mg/dL (5-11.8) H 09/25/18 10:38 Active Medications - Current Medications Current Medications: Generic Name Dose Route Start Last Admin Trade Name Freq PRN Reason Stop Dose Admin Acetaminophen 650 mg 09/23/18 01:20 Tylenol PO Q4H PRN Headache Albuterol 2.5 mg 09/23/18 11:19 Proventil IH TID PRN Wheezing Albuterol/Ipratropium 1 ampul 09/23/18 14:00 09/27/18 20:30 Duoneb *Not For Prn Use* IH 1 ampul Q6HRT NEL Administration Apixaban 5 mg 09/23/18 10:00 09/27/18 21:59 Eliquis PO 5 mg Q12HR NEL Administration Protocol Aspirin 81 mg 09/23/18 12:00 09/27/18 09:30 Halfprin Ec PO 81 mg DAILY NEL Administration Budesonide 0.5 mg 09/23/18 20:00 09/27/18 20:30 Pulmicort IH 0.5 mg Q12HRT NEL Administration Buspirone HCl 5 mg 09/23/18 10:00 09/27/18 09:31 Buspar PO 5 mg DAILY NEL Administration Dextrose 50 ml 09/23/18 11:29 D50w (25gm) Syringe IV PRN PRN Hypoglycemia Diphenhydramine HCl 25 mg 09/25/18 11:47 09/26/18 10:37 Benadryl PO 25 mg Q6H PRN Administration allergies Duloxetine HCl 60 mg 09/23/18 13:00 09/27/18 09:29 Cymbalta PO 60 mg QDAY NEL Administration Fluticasone Propionate 100 mcg 09/23/18 12:00 08/14/19 09:33 Flonase NS 100 mcg DAILY NEL Administration Furosemide 40 mg 09/25/18 18:00 09/27/18 17:31 Lasix PO 40 mg BID@0600,1800 NEL Administration Hydralazine HCl 25 mg 09/25/18 14:00 09/27/18 21:59 Apresoline PO 25 mg Q8HR NEL Administration Hydralazine HCl 10 mg 09/25/18 11:26 Apresoline IV Q4HR PRN BP >160/100 Insulin Glargine 10 units 09/23/18 22:00 09/27/18 22:00 Lantus SUB-Q 10 units QHS NEL Administration Insulin Human Lispro 0 unit 09/23/18 11:30 09/27/18 17:32 Humalog SUB-Q 8 unit AC NEL Administration Protocol Insulin Human Regular 0 units 09/23/18 22:00 09/27/18 22:00 Humulin R SUB-Q 4 units QHS NEL Administration Protocol Isosorbide Mononitrate 60 mg 09/23/18 10:00 09/27/18 09:31 Imdur PO 60 mg QDAY NEL Administration Linagliptin 5 mg 09/23/18 12:00 09/27/18 09:31 Tradjenta PO 5 mg QDAY NEL Administration Loratadine 10 mg 09/24/18 10:00 09/27/18 09:29 Claritin PO 10 mg DAILY NEL Administration Metformin HCl 500 mg 09/23/18 17:00 09/25/18 11:41 Glucophage PO 500 mg BIDDIAB NEL Administration Metoprolol Tartrate 50 mg 09/24/18 14:00 09/27/18 21:58 Lopressor PO 50 mg Q8HR NEL Administration Montelukast Sodium 10 mg 09/23/18 22:00 09/27/18 21:58 Singulair PO 10 mg QHS NEL Administration Nifedipine 60 mg 09/25/18 12:00 09/27/18 21:59 Procardia Xl PO 60 mg Q12HR NEL Administration Nitroglycerin 0.4 mg 09/24/18 16:27 Nitrostat SL Q5MIN PRN Chest Pain Ondansetron HCl 4 mg 09/23/18 01:21 Zofran IV Q8H PRN Nausea And Vomiting Oxycodone/Acetaminophen 2 tab 09/25/18 11:48 09/27/18 21:57 Percocet 5/325 PO 2 tab Q4H PRN Administration Pain, Moderate (4-6) Pantoprazole Sodium 20 mg 09/24/18 10:00 09/27/18 09:30 Protonix PO 20 mg QDAY NEL Administration Polyethylene Glycol 17 gm 09/25/18 15:00 09/27/18 09:32 Miralax 3350 PO 17 gm QDAY NEL Administration Prednisone 40 mg 09/25/18 12:00 09/27/18 09:30 Deltasone PO 40 mg QDAY NEL Administration Ranolazine 500 mg 09/23/18 10:00 09/27/18 21:58 Ranexa Er PO 500 mg BID NEL Administration Senna/Docusate Sodium 2 tab 09/25/18 14:31 Senokot S PO Q12H PRN Laxative Effect Sodium Chloride 1 spray 09/25/18 18:00 09/27/18 21:59 Deep Sea NS 1 spray QID NEL Administration Tiotropium [place] 1 puff 09/23/18 12:00 09/27/18 09:12 Spiriva IH 1 puff Q24HRT NEL Administration Nutrition/Malnutrition Assess - Dietary Evaluation Nutrition/Malnutrition Findings: Nutrition Notes Start: 09/23/18 11:14 Freq: Status: Active Protocol: Document 09/27/18 17:21 RM (Rec: 09/27/18 17:26 RM [id number]) Nutrition Notes Initial or Follow up Reassessment Current Diagnosis Acute Kidney Injury,COPD, Diabetes,Hypertension,Heart Failure Current Diet Cardiac/Consistent CHO w/ glucerna 1 daily Labs/Tests Reviewed Pertinent Medications Lasix Height 5 ft 2 in Weight 88.9 kg [place] Body Weight (kg) 50.00 BMI 35.8 Subjective/Other Information Pt stated that she has no appetite but forces herself to eat most of her meals. Also stated that she is drinking the Glucerna. Percent of energy/protein needs met: 96%/100% Burn Absent Trauma Absent #1 Nutrition Diagnosis Malnutrition Diagnosis Progress(for reassessment Continues documentation) Is patient on ventilator? No Is Patient Ambulatory and/or Out of Bed Yes REE-([facility] [place]-ambulatory/OOB) [ [id number] [id number]] Calculation Used for Recommendations Kath Souza Additional Notes Protein needs are 72-90g (1.2- 1.5g/kg using adjusted wt 59. 7kg) Fluid needs 1500ml -1700ml ( CHF) Nutrition Intervention Change Diet Order: Cardiac consistent CHO Add Supplement/Snack (indicate name/kcal Glucerna Docena or vanilla /protein ) daily Provides kCal: 220 Provides Protein (gm) 10 Goal #1 Continue to meet at least 75% of kcal and protein needs Anticipated Discharge Needs: Cardiac/consistent CHO Follow-Up By: 10/04/18 Additional Comments Follow for PO and ONS intakes
[2018-09-28] MEDS: DUONEB *Not for PRN Use IH SCH ×3 (01:44→14:04)
[2018-09-28] MEDS: PERCOCET 5/325 PO PRN ×3 (01:51→12:13)
[2018-09-28 04:13] LABS: Hematocrit 44.9 % (30.3-42.9); Hemoglobin 14.7 gm/dl (10.1-14.3); Mean Corpuscular HGB Conc 33 % (30-34); Mean Corpuscular Volume 94 fl (79-97); Platelet Count 246 K/mm3 (140-440); Red Blood Count 4.76 M/mm3 (3.65-5.03); Red Cell Distribution Width 14.3 % (13.2-15.2)
[2018-09-28 04:30] LABS: Calcium 8.9 mg/dL (8.4-10.2)
[2018-09-28] MEDS: APRESOLINE PO SCH ×2 (06:06→14:13)
[2018-09-28] MEDS: LASIX PO SCH (06:06)
[2018-09-28] MEDS: LOPRESSOR PO SCH ×2 (06:07→14:13)
[2018-09-28] MEDS: PULMICORT IH SCH (08:29)
[2018-09-28] MEDS: SPIRIVA IH SCH (08:29)
[2018-09-28] MEDS ORDERED: LEXISCAN IV ONE (09:03)
[2018-09-28] MEDS: HumaLOG SUB-Q SCH ×2 (11:49→12:03)
[2018-09-28] MEDS: RANEXA ER PO SCH (11:50)
[2018-09-28] MEDS: FLONASE NS SCH (11:50)
[2018-09-28] MEDS: DELTASONE PO SCH (11:50)
[2018-09-28] MEDS: ELIQUIS PO SCH (11:50)
[2018-09-28] MEDS: CLARITIN PO SCH (11:50)
[2018-09-28] MEDS: PROTONIX PO SCH (11:50)
[2018-09-28] MEDS: PROCARDIA XL PO SCH (11:50)
[2018-09-28] MEDS: MIRALAX 3350 PO SCH (11:50)
[2018-09-28] MEDS: IMDUR PO SCH (11:50)
[2018-09-28] MEDS: HALFPRIN EC PO SCH (11:51)
[2018-09-28] MEDS: CYMBALTA PO SCH (11:51)
[2018-09-28] MEDS: BUSPAR PO SCH (11:51)
[2018-09-28] MEDS: TRADJENTA PO SCH (11:51)
[2018-09-28] MEDS: DEEP SEA NS SCH ×3 (12:02→14:18)
[2018-09-28 12:32] VITALS: BP 151/76
--- NOTE | 2018-09-28 12:54 | Progress Note ---
Assessment and Plan Stress test found a partially reversible inferior wall defect and an EF of 23 percent. 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 Will increase Imdur and Ranexa for now. Continue other cardiac management. Recommend she follow up with primary certified registered dental assistant for additional management of HFrEF and evaluation of RCA occlusion. The patient has been seen in conjunction with Dr. Larson, who agrees with assessment and plan. - Patient Problems (1) Acute kidney injury Current Visit: Yes Status: Acute (2) Atrial fibrillation with RVR Current Visit: Yes Status: Chronic (3) Type 2 diabetes mellitus with diabetic chronic kidney disease Current Visit: Yes Status: Chronic (4) CAD (coronary artery disease) Current Visit: No Status: Chronic (5) Ischemic cardiomyopathy Current Visit: Yes Status: Chronic (6) Chronic HFrEF (heart failure with reduced ejection fraction) Current Visit: Yes Status: Chronic Subjective Date of service: 09/28/18 Principal diagnosis: afib and sob Interval history: Patient is s/p Lexiscan stress test, which found a partially reversible defect of inferior wall and an EF of 23 percent. She still c/o chest pain. SR in 80s on telemetry. Objective Last Vital Signs Temp 98.1 F 09/28/18 11:54 Pulse 91 H 09/28/18 11:54 Resp 16 09/28/18 12:13 BP 151/76 09/28/18 11:54 Pulse Ox 99 09/28/18 11:54 - Physical Examination General: No Apparent Distress HEENT: Positive: PERRL, EOMI Neck: Positive: neck supple, JVD/HJR Cardiac: Positive: Reg Rate and Rhythm Lungs: Positive: Normal Exam Neuro: Positive: Grossly Intact, Weakness Abdomen: Positive: Soft Skin: Positive: Clear Musculoskeletal: other (c/o chronic back pain) Extremities: Present: normal - Labs and Meds CBC 09/28/18 Range/Units 03:44 WBC 16.1 H (4.5-11.0) K/mm3 RBC 4.76 (3.65-5.03) M/mm3 Hgb 14.7 H (10.1-14.3) gm/dl Hct 44.9 H (30.3-42.9) % Plt Count 246 (140-440) K/mm3 Comprehensive Metabolic Panel 09/28/18 Range/Units 03:44 Sodium 137 (137-145) mmol/L Potassium 4.8 (3.6-5.0) mmol/L Chloride 99.9 (98-107) mmol/L Carbon Dioxide 24 (22-30) mmol/L BUN 52 H (7-17) mg/dL Creatinine 1.5 H (0.7-1.2) mg/dL Glucose 350 H (65-100) mg/dL Calcium 8.9 (8.4-10.2) mg/dL - Imaging and Cardiology Echo: report reviewed (04/2017 normal LV function functioning bioprosthetic mitral valve), other (09/23/2018 moderate LV dysfunction EF 35to40% with functioning bioprosthetic mitral valve) Cardiac cath: report reviewed (05/2017 revealed occluded bypass grafts with a patent WILCOX to LAD and left main distal 50% circumflex small caliber 80-90% distally and RCA 100% with extensive [id number] collaterals but normal LV function) - Telemetry EKG Rhythm: Sinus Rhythm - EKG Sinus rhythms and dysrhythmias: sinus rhythm
[2018-09-28] MEDS ORDERED: IMDUR PO SCH ×3 (12:57→14:00)
--- NOTE | 2018-09-28 13:40 | Progress Note ---
Assessment and Plan - Patient Problems (1) Acute kidney injury Current Visit: Yes Status: Acute Plan to address problem: Suspect LULU secondary to acute cardiorenal syndrome in the setting of acute A- fib with RVR, acute on chronic systolic HF. Recommend to hold IV NS, and lisinopril given also development of mild hyperkalemia. Cont lasix to 40mg po bi d. UA showed no evidence of hematuria/proteinuria to suggest acute glomerular injury. stable renal function. Avoid nephrotoxins, NSAIDs, IV contrast. stable for discharge from renal stand point with outpatient CKD f/u (2) Hyperkalemia Current Visit: Yes Status: Acute Plan to address problem: resolved. cont 2g K renal diet (3) Type 2 diabetes mellitus with diabetic chronic kidney disease Current Visit: Yes Status: Chronic Plan to address problem: glucose control as per primary attending (4) Atrial fibrillation with RVR Current Visit: Yes Status: Chronic Plan to address problem: rate control/anticoagulation as per cardiology (5) CAD (coronary artery disease) Current Visit: No Status: Chronic Plan to address problem: awaiting stress test (6) History of mitral valve replacement with bioprosthetic valve Current Visit: No Status: Chronic (7) Hypertensive chronic kidney disease with stage 1 through stage 4 chronic kidney disease, or unspecified chronic kidney disease Current Visit: Yes Status: Acute Plan to address problem: BP controlled, monitor on current meds Subjective Date of service: 09/28/18 Principal diagnosis: afib and sob Interval history: Patient awake, alert, in no acute respiratory distress. Objective - Vital Signs Vital signs: Vital Signs - 12hr 09/28/18 09/28/18 09/28/18 01:45 01:51 03:24 Temperature 98.2 F Pulse Rate 102 H Pulse Rate [ 89 Anterior Bilateral Throughout] Pulse Rate [ Apical] Respiratory 20 19 Rate Respiratory 19 Rate [Anterior Bilateral Throughout] Respiratory Rate [Chest] Blood Pressure 129/59 O2 Sat by Pulse 95 Oximetry 09/28/18 09/28/18 09/28/18 05:50 06:00 06:05 Temperature 98.6 F Pulse Rate 98 H 98 H Pulse Rate [ Anterior Bilateral Throughout] Pulse Rate [ Apical] Respiratory 20 Rate Respiratory Rate [Anterior Bilateral Throughout] Respiratory 20 Rate [Chest] Blood Pressure 154/78 O2 Sat by Pulse 94 Oximetry 08/15/19 08/15/19 08/15/19 06:06 06:07 06:18 Temperature 97.5 F L Pulse Rate 97 H 98 H 54 L Pulse Rate [ Anterior Bilateral Throughout] Pulse Rate [ Apical] Respiratory 19 Rate Respiratory Rate [Anterior Bilateral Throughout] Respiratory Rate [Chest] Blood Pressure 154/78 154/78 123/45 O2 Sat by Pulse 97 98 Oximetry 09/28/18 09/28/18 09/28/18 08:02 08:29 09:26 Temperature 98.3 F Pulse Rate 91 H Pulse Rate [ 86 Anterior Bilateral Throughout] Pulse Rate [ Apical] Respiratory 18 Rate Respiratory 19 Rate [Anterior Bilateral Throughout] Respiratory Rate [Chest] Blood Pressure 121/70 139/70 O2 Sat by Pulse 94 Oximetry 09/28/18 09/28/18 09/28/18 09:27 09:29 09:34 Temperature Pulse Rate 85 Pulse Rate [ Anterior Bilateral Throughout] Pulse Rate [ Apical] Respiratory Rate Respiratory Rate [Anterior Bilateral Throughout] Respiratory Rate [Chest] Blood Pressure 147/65 139/70 123/65 O2 Sat by Pulse Oximetry 09/28/18 09/28/18 09/28/18 09:35 09:36 09:37 Temperature Pulse Rate 89 89 85 Pulse Rate [ Anterior Bilateral Throughout] Pulse Rate [ Apical] Respiratory Rate Respiratory Rate [Anterior Bilateral Throughout] Respiratory Rate [Chest] Blood Pressure 147/65 137/65 123/65 O2 Sat by Pulse Oximetry 09/28/18 09/28/18 09/28/18 09:38 09:39 09:40 Temperature Pulse Rate 88 82 82 Pulse Rate [ Anterior Bilateral Throughout] Pulse Rate [ Apical] Respiratory Rate Respiratory Rate [Anterior Bilateral Throughout] Respiratory Rate [Chest] Blood Pressure 123/65 141/47 129/71 O2 Sat by Pulse Oximetry 09/28/18 09/28/18 09/28/18 10:00 11:54 12:13 Temperature 98.1 F Pulse Rate 91 H Pulse Rate [ Anterior Bilateral Throughout] Pulse Rate [ 100 H Apical] Respiratory 18 16 Rate Respiratory Rate [Anterior Bilateral Throughout] Respiratory Rate [Chest] Blood Pressure 151/76 O2 Sat by Pulse 97 99 Oximetry - General Appearance General appearance: well-developed, well-nourished, appears stated age, obese EENT: ATNC, PERRL, mucous membranes moist Neck: no JVD Respiratory: Present: Clear to Ascultation Cardiology: regular, S1S2 Gastrointestinal: obese Integumentary: no rash, other (no edema ) Neurologic: no focal deficit, alert and oriented x3, strength 5/5, CN 3-12 intact Psychiatric: mood/affect appropriate, cooperative - Lab 09/28/18 03:44 09/28/18 03:44 Most recent lab results Calcium 8.9 mg/dL (8.4-10.2) 09/28/18 03:44 Magnesium 1.90 mg/dL (1.7-2.3) 09/27/18 05:06 138.8 mg/dL (0.1-20.0) H 09/25/18 10:38 65 mmol/L 09/25/18 10:38 27 mg/dL (5-11.8) H 09/25/18 10:38 Medications & Allergies - Medications Allergies/Adverse Reactions: Allergies No Known Allergies Allergy (Unverified 05/19/17 07:38) Home Medications: Home Medications Medication Instructions Recorded Confirmed Last Taken Type ALBUTEROL NEB's [Proventil] 2.5 mg IH TID PRN 05/19/17 09/22/18 1 Week Ago History ~05/12/17 Aspirin [Aspirin EC] 81 mg PO DAILY 05/19/17 09/22/18 05/18/17 History Carvedilol [Coreg] 12.5 mg PO BID 05/19/17 09/22/18 05/18/17 History Duloxetine HCl [DULoxetine] 60 mg PO DAILY 05/19/17 09/22/18 05/18/17 History Fluticasone Propionate [Flovent 2 puff INHALATION BID 05/19/17 09/22/18 05/17/17 History 110 MCG/PUFF HFA] Fluticasone [Flonase] 1 inh INNOSTRIL DAILY 05/19/17 09/22/18 1 Week Ago History ~05/12/17 Furosemide [Lasix TAB] 40 mg PO DAILY 05/19/17 09/22/18 05/18/17 History ISOSORBIDE MONOnitrate [Imdur ER] 60 mg PO QDAY 05/19/17 09/22/18 05/18/17 History Insulin Glargine,Hum.rec.anlog 10 unit PO DAILY 05/19/17 09/22/18 05/18/17 History [Lantus Solostar] Loratadine 10 mg PO DAILY 05/19/17 09/22/18 05/17/17 History Meloxicam 15 mg PO DAILY 05/19/17 09/22/18 05/18/17 History Metformin HCl 500 mg PO BID 05/19/17 09/22/18 1 Week Ago History ~05/12/17 Montelukast [Singulair] 10 mg PO QPM 05/19/17 09/22/18 05/18/17 History Nitroglycerin 0.4 mg SL Q5MIN PRN 05/19/17 09/22/18 05/14/17 History Omeprazole 20 mg PO DAILY 05/19/17 09/22/18 05/18/17 History Ramipril 5 mg PO DAILY 05/19/17 09/22/18 05/18/17 History Ranolazine [Ranexa] 500 mg PO BID #60 tab.er.12h 05/19/17 09/22/18 Unknown Rx Saxagliptin HCl [Onglyza] 5 mg PO DAILY 05/19/17 09/22/18 05/18/17 History Tiotropium Monroe [Spiriva] 18 mcg IH DAILY 05/19/17 09/22/18 05/16/17 History Zolpidem [Ambien] 10 mg PO QHS 05/19/17 09/22/18 4 Months Ago History ~01/18/17 busPIRone [Buspar] 5 mg PO DAILY 05/19/17 09/22/18 05/18/17 History oxyCODONE /ACETAMINOPHEN [Percocet 1 tab PO Q6HR PRN 05/19/17 09/22/18 05/19/17 History 5/325 mg] Active Medications: Generic Name Dose Route Start Last Admin Trade Name Freq PRN Reason Stop Dose Admin Acetaminophen 650 mg 09/23/18 01:20 Tylenol PO Q4H PRN Headache Albuterol 2.5 mg 09/23/18 11:19 Proventil IH TID PRN Wheezing Albuterol/Ipratropium 1 ampul 09/23/18 14:00 09/28/18 08:29 Duoneb *Not For Prn Use* IH 1 ampul Q6HRT NEL Administration Apixaban 5 mg 09/23/18 10:00 09/28/18 11:50 Eliquis PO 5 mg Q12HR NEL Administration Protocol Aspirin 81 mg 09/23/18 12:00 09/28/18 11:51 Halfprin Ec PO 81 mg DAILY NEL Administration Budesonide 0.5 mg 09/23/18 20:00 09/28/18 08:29 Pulmicort IH 0.5 mg Q12HRT NEL Administration Buspirone HCl 5 mg 09/23/18 10:00 09/28/18 11:51 Buspar PO 5 mg DAILY NEL Administration Dextrose 50 ml 09/23/18 11:29 D50w (25gm) Syringe IV PRN PRN Hypoglycemia Diphenhydramine HCl 25 mg 09/25/18 11:47 09/26/18 10:37 Benadryl PO 25 mg Q6H PRN Administration allergies Duloxetine HCl 60 mg 09/23/18 13:00 09/28/18 11:51 Cymbalta PO 60 mg QDAY NEL Administration Fluticasone Propionate 100 mcg 09/23/18 12:00 09/28/18 11:50 Flonase NS 100 mcg DAILY NEL Administration Furosemide 40 mg 09/25/18 18:00 09/28/18 06:06 Lasix PO 40 mg BID@0600,1800 NEL Administration Hydralazine HCl 25 mg 09/25/18 14:00 09/28/18 06:06 Apresoline PO 25 mg Q8HR NEL Administration Hydralazine HCl 10 mg 09/25/18 11:26 Apresoline IV Q4HR PRN BP >160/100 Insulin Glargine 10 units 09/23/18 22:00 09/27/18 22:00 Lantus SUB-Q 10 units QHS NEL Administration Insulin Human Lispro 0 unit 09/23/18 11:30 09/28/18 12:03 Humalog SUB-Q 2 unit AC NEL Administration Protocol Insulin Human Regular 0 units 09/23/18 22:00 09/27/18 22:00 Humulin R SUB-Q 4 units QHS [facility] Administration Protocol Isosorbide Mononitrate 30 mg 09/28/18 14:00 Imdur PO DAILY NEL Isosorbide Mononitrate 60 mg 09/28/18 14:00 Imdur PO QDAY NEL Linagliptin 5 mg 09/23/18 12:00 09/28/18 11:51 Tradjenta PO 5 mg QDAY NEL Administration Loratadine 10 mg 09/24/18 10:00 09/28/18 11:50 Claritin PO 10 mg DAILY NEL Administration Metformin HCl 500 mg 09/23/18 17:00 09/25/18 11:41 Glucophage PO 500 mg BIDDIAB NEL Administration Metoprolol Tartrate 50 mg 09/24/18 14:00 09/28/18 06:07 Lopressor PO 50 mg Q8HR NEL Administration Montelukast Sodium 10 mg 09/23/18 22:00 09/27/18 21:58 Singulair PO 10 mg QHS NEL Administration Nifedipine 60 mg 09/25/18 12:00 09/28/18 11:50 Procardia Xl PO 60 mg Q12HR NEL Administration Nitroglycerin 0.4 mg 09/24/18 16:27 Nitrostat SL Q5MIN PRN Chest Pain Ondansetron HCl 4 mg 09/23/18 01:21 Zofran IV Q8H PRN Nausea And Vomiting Oxycodone/Acetaminophen 2 tab 09/25/18 11:48 09/28/18 12:13 Percocet 5/325 PO 2 tab Q4H PRN Administration Pain, Moderate (4-6) Pantoprazole Sodium 20 mg 09/24/18 10:00 09/28/18 11:50 Protonix PO 20 mg QDAY NEL Administration Polyethylene Glycol 17 gm 09/25/18 15:00 09/28/18 11:50 Miralax 3350 PO 17 gm QDAY NEL Administration Prednisone 40 mg 09/25/18 12:00 09/28/18 11:50 Deltasone PO 40 mg QDAY NEL Administration Ranolazine 1,000 mg 09/28/18 22:00 Ranexa Er PO BID NEL Senna/Docusate Sodium 2 tab 09/25/18 14:31 Senokot S PO Q12H PRN Laxative Effect Sodium Chloride 1 spray 09/25/18 18:00 09/28/18 12:03 Deep Sea NS 1 spray QID NEL Administration Tiotropium Monroe 1 puff 09/23/18 12:00 09/28/18 08:29 Spiriva IH 1 puff Q24HRT NEL Administration
--- NOTE | 2018-09-28 14:28 | Discharge Summary ---
Providers - Providers Date of Admission: 09/23/18 01:52 Attending physician: ADITYA EARL 09/22/18 21:41 Consult to Physician [CONS] Stat Comment: Consulting Provider: YODIT EMMANUEL Physician Instructions: Reason For Exam: afib 09/23/18 11:29 Consult to Dietitian/Nutrition [CONS] Routine Physician Instructions: Reason For Exam: Reason for Consult: Diet education 09/25/18 09:22 Consult to Physician [CONS] Routine Comment: Consulting Provider: VITA VALLADARES Physician Instructions: Reason For Exam: zack Primary care physician: TESSA WEEKS Hospitalization Condition: Stable Hospital course: Patient is a 68-year-old woman with a history of diabetes mellitus type 2, GERD, arthritis, COPD, hypertension, AMI, coronary arterial disease with four-vessel bypass in 1997 last year his cardiac cath revealed occluded bypass grafts with a patent WILCOX to LAD and left main distal 50% circumflex small caliber 80-90% distally and RCA 100% with extensive [id number] collaterals but normal LV function. Patient did not follow-up with [facility] for possible BUTT WELDER of RCA. Patient has valvular heart disease with a bioprosthetic mitral valve placed in 2009 that was functioning on echo done last year in office who presents to the hospital with palpitations 2 weeks. She was seen by her marketing content coordinator Dr. Deniz Mirza and sent to the hospital. She was found to be in AFib with RVR and CHF as well as COPD exacerbation, hence admission to the hospital New-onset p. atrial fibrillation with RVR and hypercoagulable state Medications per cardiology, reculture medications optimize her marketing content coordinator, discussed reduction and dietary On eliquis for Anticoagulation/stroke prophylaxis Acute on chronic diastolic heart failure, poa as pt cxr showed p. edema and proBNP was 2558 currently she is on lasix twice a day instead of home dose of once a day Chest pains is related to stable angina due to known Occluded RCA Stress test found a partially reversible inferior wall defect and an EF of 23 percent. The patient is still complaining of chest pain and per office notes, was referred to [facility] for BUTT WELDER of RCA occlusion; however, she did not follow through with this recommendation. Will increase Imdur and Ranexa for now. Continue other cardiac management. Recommend she follow up with primary marketing content coordinator for additional management of HFrEF and evaluation of RCA occlusion. Patient was referred to [facility] (Anodizer) but she went to Dr. Emmanuel thinking he was the Interventionalist [facility] that she needed to see; technically he is apart of [facility] Research Development Director but not the Interventionalist [facility] that she needs to see, may need rotor-rooter which is not done here. I have asked [facility] BUILDING PRINCIPAL to coordinate follow-up Acute COPD exacerbation Steroids and nebs Leukocytosis on steroids repeat cbc get CXR and if no pneumonia will discharge home Chronic osteoarthritis with back pain Continue pain medications Pain medication seeking behavior Patient has been counseled about the risks of taking narcotics [id number], she verbalized understanding Preventative health counseling performed for 17 minutes Hypertensive urgency Optimize blood pressure medications Acute kidney injury/vasomotor nephropathy Creatinine has started to come down but not at baseline, we'll add IV fluids, and nephrology consult. Have stopped NSAID and YOUNG inhibitor Bioprosthetic mitral valve Cardiology is following Tobacco dependency Reporting Manager on stopping DVT prophylaxis Patient fully a[facility]c [facility] Disposition: continue inpatient care, Cr was 1.0-->1.9 now back down to 1.6, cr now 1.5. Renal has cleared to go home, get CXR and if no pneumonia will d/c home Disposition: DC TO HOME OR SELFCARE Time spent for discharge: 37 minutes Core Measure Documentation - Palliative Care Palliative Care/ Comfort Measures: Not Applicable - Core Measures Any of the following diagnoses?: none - VTE Discharge Requirements Deep Vein Thrombosis/Pulmonary Embolism Present on Admission: No Has pt received <5 days of overlap therapy or INR<2.0: No Anticoagulant overlap therapy prescribed at discharge: No Contraindication No Overlap Therapy order at DC: Not Indicated Exam - Physical Exam Narrative exam: Gen: WDWN, NAD, Awake, Alert, Orientated x 3 HEENT: NCAT, EOMI, PERRL, OP Clear Neck: supple, no adenopathy, no thyromegaly, no JVD CVS/Heart: RRR, normal S1S2, pulses present bilaterally Chest/Lungs: diminished with mild ex wheezing, Symmetrical chest expansion, good air entry bilaterally GI/Abdomen: soft, NTND, good bowel sounds, no guarding or rebound /Bladder: no suprapubic tenderness, no CVA or paraspinal tenderness Extermity/Skin: no c/c/e, no obvious rash MSK: FROM x 4 Neuro: CN 2-12 grossly intact, no new focal deficits Psych: calm - Constitutional Vitals: Temp Pulse Resp BP Pulse Ox 98.1 F 88 18 151/76 99 09/28/18 11:54 09/28/18 14:04 09/28/18 14:04 09/28/18 11:54 09/28/18 11:54 Plan Activity: other (no strenous activity, including sex and driving until cleared by [facility] [employer]) Diet: low salt, diabetic Special Instructions: record blood sugar diary (three times a day and create a log book) Follow up with: TESSA WEEKS MD [Primary Care Provider] - 3-5 Days YODIT EMMANUEL MD [Staff Physician] - 10/06/18 3:30 pm Prescriptions: hydrALAZINE [Apresoline TAB] 25 mg PO TID #90 tablet Loratadine [Claritin] 10 mg PO DAILY #30 tablet Ipratropium/Albuterol Sulfate [DUONEB *Not for PRN Use*] 1 ampul IH Q4H PRN #30 ampul.neb PRN Reason: Shortness Of Breath Apixaban [Eliquis] 5 mg PO Q12HR #30 tablet ISOSORBIDE MONOnitrate [Imdur ER] 3 tab PO DAILY #90 tab.er.24h Furosemide [Lasix TAB] 40 mg PO BID@0600,1800 #60 tablet Metoprolol [Lopressor TAB] 50 mg PO TID #90 tablet methylPREDNISolone [Medrol 4MG DOSEPAK (21 tabs)] 1 dose PO DAILY #1 tab.ds.pk Polyethylene Glycol 3350 [Miralax 3350] 17 gm PO QDAY PRN #30 powd.pack PRN Reason: Constipation oxyCODONE /ACETAMINOPHEN [Percocet 5/325 mg] 1 tab PO Q6HR PRN #15 tablet PRN Reason: Pain , Severe (7-10) ALBUTEROL Inhaler (OR & NICU) [ProAir HFA Inhaler] 2 puff IH QID PRN #1 unit PRN Reason: Shortness Of Breath NIFEdipine XL [Procardia Xl] 60 mg PO Q12HR #30 tablet Ranolazine ER [Ranexa ER] 2 tab PO BID #120 tab.er.12h Montelukast [Singulair] 10 mg PO QPM #30 tablet Budesonide/Formoterol Fumarate [Symbicort 160-4.5 Mcg Inhaler] 2 puff IH BID #1 unit
--- NOTE | 2018-09-28 15:46 | XRay Report ---
CHEST 2 VIEWS INDICATION: new cough. Shortness of breath with palpitations for 2 weeks. COMPARISON: 09/22/2018 FINDINGS: Support devices: None. Heart: Previous cardiac surgery changes with valve replacement are again noted. Borderline to mild ca rdiomegaly appears stable. Lungs/pleura: No acute air space or interstitial disease. No pneumothorax. Additional findings: None. IMPRESSION: No acute findings. Signer Name: Bryan Vargas Jr, MD Signed: 09/28/2018 3:42 PM Workstation Name: [id number]
[2018-09-28] MEDS ORDERED: RANEXA ER PO SCH (22:00)
--- NOTE | 2018-09-29 02:47 | Treadmill Report ---
NUCLEAR CARDIAC IMAGING REPORT INDICATION FOR PROCEDURE: Chest pain. Informed consent was obtained. Vasodilator stress was achieved with the intravenous administration of Lexiscan per protocol. Rest and stress nuclear cardiac imaging was performed per protocol with the intravenous administration of technetium-99m Myoview. Gated SPECT imaging demonstrates a post-stress left ventricular ejection fraction of 23%. The left ventricle is diffusely hypokinetic. Myocardial perfusion imaging demonstrates no significant cavity change between stress and rest. There is a small moderately intense inferior wall perfusion defect that is partially persistent and partially reversible. Nuclear cardiac imaging demonstrates severe left ventricular systolic dysfunction with evidence of prior inferior wall myocardial necrosis with a zone of lalo-infarction ischemia. JOB# [id number] ELAN/BLADE
== END 2018-09-28 18:53 | disposition home or self-care (01) | DRG 291 ==
LOC: ED 17:34 → 4A 09-23 01:52
PROVIDERS: ADMIT Internal Medicine; ATTEND Internal Medicine
DX: I13.0 Hypertensive heart and chronic kidney disease with heart failure and stage 1 through stage 4 chronic kidney disease, or unspecified chronic kidney disease (principal); N17.0 Acute kidney failure with tubular necrosis; I50.43 Acute on chronic combined systolic (congestive) and diastolic (congestive) heart failure; J44.1 Chronic obstructive pulmonary disease with (acute) exacerbation; D68.59 Other primary thrombophilia; I25.118 Atherosclerotic heart disease of native coronary artery with other forms of angina pectoris; N18.9 Chronic kidney disease, unspecified; E11.22 Type 2 diabetes mellitus with diabetic chronic kidney disease; I16.0 Hypertensive urgency; E87.5 Hyperkalemia; I25.5 Ischemic cardiomyopathy; M19.90 Unspecified osteoarthritis, unspecified site; K21.9 Gastro-esophageal reflux disease without esophagitis; I48.0 Paroxysmal atrial fibrillation; D72.828 Other elevated white blood cell count; T38.0X5A Adverse effect of glucocorticoids and synthetic analogues, initial encounter; E78.5 Hyperlipidemia, unspecified; M54.9 Dorsalgia, unspecified; F17.210 Nicotine dependence, cigarettes, uncomplicated; Z96.659 Presence of unspecified artificial knee joint; Z79.01 Long term (current) use of anticoagulants; Z95.2 Presence of prosthetic heart valve; I25.2 Old myocardial infarction; Y92.89 Other specified places as the place of occurrence of the external cause; Z65.8 Other specified problems related to psychosocial circumstances; Z71.6 Tobacco abuse counseling; Z95.1 Presence of aortocoronary bypass graft; Z79.82 Long term (current) use of aspirin; Z79.899 Other long term (current) drug therapy; Z95.5 Presence of coronary angioplasty implant and graft
CPT/HCPCS: 36415; 71045; 71046; 78452; 80048; 80053; 81001; 82550; 82553; 82570; 82962; 83735; 83880; 84156; 84300; 84484; 85014; 85018; 85025; 85027; 85049; 85520; 85610; 85730; 93005; 93010; 93017; 93306; 94640; 94760; 96374; 96375; G0378; A9502; J1160; J1644; J1815; J2270; J2405; J2785; J2920; J7512

== ENCOUNTER 2018-10-18 06:37 | Day surgery (SDC) | payer MEDICARE ==
[2018-10-18] MEDS ORDERED: ECOTRIN PO ONE ×2 (07:15→07:24)
[2018-10-18] MEDS ORDERED: NACL 0.9% 500 ML 500 ML ONE (07:24)
[2018-10-18] MEDS ORDERED: NACL 0.9% 500 ML 500 ML IV SCH (08:00)
[2018-10-18 08:07] LABS: Basophils # (Auto) 0.1 K/mm3 (0.0-0.1); Basophils % (Auto) 1.3 % (0.0-1.8); Eosinophils # (Auto) 0.2 K/mm3 (0.0-0.4); Eosinophils % (Auto) 2.5 % (0.0-4.3); Hematocrit 36.8 % (30.3-42.9); Hemoglobin 12.4 gm/dl (10.1-14.3); Lymphocytes # (Auto) 2.2 K/mm3 (1.2-5.4); Lymphocytes % (Auto) 23.2 % (13.4-35.0); Mean Corpuscular HGB Conc 34 % (30-34); Mean Corpuscular Volume 95 fl (79-97); Monocytes # (Auto) 1.1 K/mm3 (0.0-0.8); Platelet Count 243 K/mm3 (140-440); Red Blood Count 3.88 M/mm3 (3.65-5.03); Red Cell Distribution Width 14.1 % (13.2-15.2)
[2018-10-18 08:30] LABS: INR 0.96 (0.87-1.13)
[2018-10-18 08:31] LABS: Partial Thromboplastin Time 31.4 Sec. (24.2-36.6)
[2018-10-18] MEDS ORDERED: HEPARIN/NS 5000 UNIT/500ML(CATH LAB) 1,000 ML IR ONE (08:33)
[2018-10-18] MEDS ORDERED: HEPARIN 10,000 UNITS/10 ML ONE (08:34)
[2018-10-18] MEDS ORDERED: CALAN ONE (08:34)
[2018-10-18] MEDS ORDERED: NITROGLYCERIN SYRINGE 0 ML ONE (08:34)
[2018-10-18] MEDS ORDERED: XYLOCAINE 2% INFILTRATI ONE (08:34)
[2018-10-18] MEDS: SUBLIMAZE ONE ×2 (09:19→09:25)
[2018-10-18] MEDS: VERSED ONE ×2 (09:19→09:25)
--- NOTE | 2018-10-18 10:41 | Cardiac Catherization Report ---
INDICATION FOR PROCEDURE: The patient is a 68-year-old -[place] female with history of aortocoronary bypass surgery and mitral valve replacement in 1997 with history of prior coronary intervention. The patient also has underlying atrial flutter/fibrillation. Presently, she is having symptoms of angina, on multiple antianginal medications including beta mindy, calcium channel mindy, nitrates and Ranexa. Because of persistent chest pain and recently had a pharmacological stress testing, which was found to be abnormal with evidence of inferior ischemia and lalo-infarct ischemia. Because of her persistent symptoms with previous history, the patient is being scheduled for cardiac catheterization for definitive diagnosis and treatment. The patient was evaluated in the past with coronary angiography in May of 2017, at which time she was noted to have patent left internal mammary graft, but occluded three vein grafts on aortography. The patient is aware of the procedure, potential complications and alternatives of therapy available. DESCRIPTION OF PROCEDURE: The patient was brought to the catheterization laboratory in a fasting condition and she was evaluated for moderate sedation and she was felt to be appropriate candidate. The patient received IV Versed and fentanyl starting at 9:16 a.m. She was continuously monitored with pulse oximetry, hemodynamic monitoring and EKG monitoring. Subsequently, local anesthesia was given in the right groin area and right femoral artery puncture was made using 5-Maldivian micropuncture needle under fluoroscopy. A 5-Maldivian slender sheath was introduced. A 5-Maldivian multipurpose catheter was used to obtain the angiograms of the vein grafts, which were found to be occluded and also left ventriculogram done in HOPPER and TAJIK projection and also angiograms of the right coronary artery were obtained. Subsequently, JL3.5 6-Maldivian diagnostic catheter was used to obtain the angiograms of the left coronary artery. A 6-Maldivian left mammary catheter was used to obtain the angiograms of the left internal mammary graft. At the end of the procedure, catheter and sheath were removed. Procedure was uncomplicated. No hematoma noted. Manual pressure will be applied. The venous sheath was removed. The patient was monitored throughout the procedure as mentioned above with pulse oximetry, hemodynamic and EKG monitoring. Monitoring of the moderate sedation ended at 9:47 a.m. The patient was transferred to the outpatient area in stable condition. The patient at the end of the procedure is communicating normally, moving all the extremities and breathing normally. Following findings were noted: HEMODYNAMICS: 1. Opening aortic pressure 154/57, left ventricular pressure 159/20. No gradient across the aortic valve. Estimated ejection fraction 55%. There is probably a bioprosthetic valve noted in the mitral area. 2. Left ventriculogram done in HOPPER and TAJIK projection showed normal sized left ventricle with normal contractility. End-diastolic and systolic volumes are normal. Mitral regurgitation was not evaluated because of limited amount of dye injected. 3. Right coronary artery dominant vessel arises normally from right coronary cusp. This is severely diffusely diseased with total occlusion in the proximal part; however, it is filling antegrade and retrograde on RCA injection and LCA injection. This vessel appears to be severely diffuse. 4. Left coronary artery, left main shows mild smooth disease, 30%. Proximal and mid LAD is patent with severe stenosis in the mid LAD and competitive flow noted from the mammary graft after the mid LAD. 5. Distal LAD is filling very well with a very widely patent left internal mammary graft. There is a large proximal diagonal branch without significant disease. 6. Large ramus branch is noted. This appears to be a large vessel, but severely diffusely diseased with occlusion in the mid part. However, narrow caliber distal vessels are noted. Similarly, circumflex artery shows severe diffuse disease approaching more than 95% throughout in the proximal and mid third with posterolateral branches filling slowly on antegrade injection. Excellent collaterals were noted to the distal right coronary artery, and also circumflex artery is well visualized in addition to ramus branch. The patient at this time has severe disease in the RCA, which is diffusely diseased. Similarly, large ramus branch is occluded, but filling antegradely and retrogradely in addition to circumflex artery showing severe diffuse disease. LAD is protected by widely patent left internal mammary graft. The patient has normal left ventricular systolic function. Considering the above angiographic pictures with normal LV function in spite of maximal medical therapy, probably intervention of the multivessel , diffuse disease and also short occlusions was noted. We would recommend evaluation for intervention of the circumflex artery, ramus and RCA. Continue present aggressive medical therapy. Procedure was uncomplicated. Findings were explained to the patient and her . JOB# [id number] BRIEN/BLADE [place]
--- NOTE | 2018-10-18 12:09 | Short Stay Summary ---
Short Stay Documentation Date of service: 10/18/18 - History H&P: obtained from office - Allergies and Medications Current Medications: Allergies No Known Allergies Allergy (Unverified 05/19/17 07:38) Home Medications Medication Instructions Recorded Confirmed Last Taken Type Aspirin [Aspirin EC] 81 mg PO DAILY 05/19/17 10/18/18 10/17/18 History 81mg Duloxetine HCl [DULoxetine] 60 mg PO DAILY 05/19/17 10/18/18 10/17/18 History 60mg Metformin HCl 500 mg PO DAILY 05/19/17 10/18/18 10/15/18 History 500mg Nitroglycerin 0.4 mg SL Q5MIN PRN 05/19/17 10/18/18 09/21/18 History 0.4mg Saxagliptin HCl [Onglyza] 5 mg PO DAILY 05/19/17 10/18/18 10/17/18 History 5mg ALBUTEROL Inhaler (OR & NICU) 2 puff IH QID PRN #1 unit 09/28/18 10/18/18 10/15/18 Rx [ProAir HFA Inhaler] 2 puff Apixaban [Eliquis] 5 mg PO Q12HR #30 tablet 09/28/18 10/18/18 10/15/18 Rx 5mg Budesonide/Formoterol Fumarate 2 puff IH BID #1 unit 09/28/18 10/18/18 10/17/18 Rx [Symbicort 160-4.5 Mcg Inhaler] 2 puff Fluticasone [Flonase] 100 mcg NS DAILY #1 bottle 09/28/18 10/18/18 10/15/18 Rx 100mcg Ipratropium/Albuterol Sulfate 1 ampul IH Q4H PRN #30 ampul.neb 09/28/18 10/18/18 10/03/18 Rx [DUONEB *Not for PRN Use*] 1 dose Metoprolol [Lopressor TAB] 50 mg PO TID #90 tablet 09/28/18 10/18/18 10/18/18 05:00 Rx 50mg Montelukast [Singulair] 10 mg PO QPM #30 tablet 09/28/18 10/18/18 10/17/18 Rx 10mg NIFEdipine XL [Procardia Xl] 60 mg PO Q12HR #30 tablet 09/28/18 10/18/18 10/17/18 Rx 60mg Omeprazole 20 mg PO DAILY #30 09/28/18 10/18/18 10/17/18 Rx 20mg Ranolazine ER [Ranexa ER] 2 tab PO BID #120 tab.er.12h 09/28/18 10/18/18 10/16/18 Rx 2 tabs Tiotropium [place] [Spiriva] 18 mcg IH DAILY #1 09/28/18 10/18/18 10/01/18 Rx 1 dose busPIRone [Buspar] 5 mg PO DAILY #30 tab 09/28/18 10/18/18 10/17/18 Rx 5mg diphenhydrAMINE [Benadryl CAP] 25 mg PO Q6H PRN #15 capsule 09/28/18 10/18/18 10/17/18 Rx 25mg hydrALAZINE [Apresoline TAB] 25 mg PO TID #90 tablet 09/28/18 10/18/18 10/18/18 05:00 Rx 25mg oxyCODONE /ACETAMINOPHEN [Percocet 1 tab PO Q6HR PRN #15 tablet 09/28/18 10/18/18 10/18/18 Rx 5/325 mg] 1 tab Cetirizine HCl [ZyrTEC 10mg cap] 10 mg PO DAILY 10/18/18 10/18/18 10/17/18 History 10mg Ergocalciferol (Vitamin D2) 1 cap PO QWEEK 10/18/18 10/18/18 10/16/18 History [Vitamin D2] 1 cap Furosemide [Lasix TAB] 40 mg PO DAILY 10/18/18 10/18/18 10/17/18 History 40mg Gabapentin [Neurontin] 100 mg PO PRN PRN 10/18/18 10/18/18 10/15/18 History 100mg ISOSORBIDE MONOnitrate [Imdur ER] 60 mg PO DAILY 10/18/18 10/18/18 10/17/18 History 60mg Insulin Glargine,Hum.rec.anlog 34 unit SQ HS 10/18/18 10/18/18 10/16/18 History [Jeff Kaminski] 34units Omeprazole 40 mg PO DAILY 10/18/18 10/18/1819 History 40mg Pravastatin [Pravachol] 40 mg PO HS 10/18/18 10/18/18 10/17/18 History 40mg Zolpidem [Ambien] 10 mg PO PRN PRN 10/18/18 10/18/18 09/17/18 History 10mg Active Medications Sodium Chloride (Nacl 0.9% 500 Ml) 500 mls @ 50 mls/hr IV DIRECT NEL Stop: 10/18/18 17:59 Last Admin: 10/18/18 07:52 Dose: 50 mls/hr Documented by: - Brief post op/procedure progress note Date of procedure: 10/18/18 Pre-op diagnosis: CAD Post-op diagnosis: same Procedure: LHC - see dictated cath report Anesthesia: local Estimated blood loss: none Condition: stable - Disposition Condition at discharge: Good Disposition: [id number] TO HOME OR SELFCARE - Discharge Diagnoses (1) CAD (coronary artery disease) Status: Chronic (2) Hx of CABG Status: Chronic (3) Atrial fibrillation and flutter Status: Chronic (4) CKD (chronic kidney disease) Status: Chronic (5) History of mitral valve replacement with bioprosthetic valve Status: Chronic (6) Ischemic cardiomyopathy Status: Chronic (7) 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
[2018-10-18 15:16] VITALS: BP 130/58
== END 2018-10-18 15:30 | disposition home or self-care (01) ==
LOC: CATHLABREC 06:37
PROVIDERS: ATTEND Internal Medicine
DX: I25.118 Atherosclerotic heart disease of native coronary artery with other forms of angina pectoris (principal); I48.2 Chronic atrial fibrillation; I13.0 Hypertensive heart and chronic kidney disease with heart failure and stage 1 through stage 4 chronic kidney disease, or unspecified chronic kidney disease; E11.22 Type 2 diabetes mellitus with diabetic chronic kidney disease; N18.9 Chronic kidney disease, unspecified; I50.22 Chronic systolic (congestive) heart failure; I42.8 Other cardiomyopathies; E78.00 Pure hypercholesterolemia, unspecified; J44.9 Chronic obstructive pulmonary disease, unspecified; G47.30 Sleep apnea, unspecified; K21.9 Gastro-esophageal reflux disease without esophagitis; M19.90 Unspecified osteoarthritis, unspecified site; F32.9 Major depressive disorder, single episode, unspecified; F17.210 Nicotine dependence, cigarettes, uncomplicated; F41.9 Anxiety disorder, unspecified; Z95.1 Presence of aortocoronary bypass graft; Z95.2 Presence of prosthetic heart valve; Z79.899 Other long term (current) drug therapy; Z79.84 Long term (current) use of oral hypoglycemic drugs; Z79.4 Long term (current) use of insulin; Z95.3 Presence of xenogenic heart valve; Z96.653 Presence of artificial knee joint, bilateral; Z82.49 Family history of ischemic heart disease and other diseases of the circulatory system
CPT/HCPCS: 36415; 80048; 82962; 85025; 85610; 85730; 93005; 93010; 93459; 99156; 99157; C1894; J1644; J2250; J3010; J7040; Q9967